=== PATIENT | female | born 1985 | race Caucasian/White ===

== ENCOUNTER 2018-03-01 11:36 | Inpatient (IN) ==
--- OUTSIDE RECORDS SUMMARY | 2018-03-03 14:55 | External Medical Summary | Continuity of Care Document ---
:1985 Author Organization [facility] Address [address] [place], [place] [address] Phone Care Team Providers Name Role Phone Corrie Coronado APRN Unavailable Unavailable Allergies, Adverse Reactions, Alerts Substance Reaction Severity Status oxycodone Rash Unknown Active hydrocodone Unknown Active Medications Medication Instructions Dosage Effective Dates Status Comments (start - stop) Aspir-81 81 mg take 1 tablet by 81 MG - Active tablet,delayed oral route every release day Elite-OB 50 take 1 tablet by Not Available - Active mg-1.25 mg tablet oral route every day Fish Oil [place] - Active 3-6-9 300 mg-1,000 mg capsule,delayed release Problems Condition Effective Dates (start - stop) Clinical Status 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) - (routine) w/o abn findings 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) - (routine) w/o abn findings Previous Low Transverse - Encounter for suprvsn of normal - , third trimester 30 weeks gestation of - Supervision of other high risk - pregnancies, first trimester Previous Low Transverse - Encntr screen for infections w sexl - mode of transmiss Encounter for screening for oth - infec/parastc diseases Encounter for suprvsn of normal - , first trimester Encounter for screening of - mother 9 weeks gestation of - Secondary amenorrhea Female infertility associated with anovulation Supervision of other high risk - pregnancies, first trimester Previous Low Transverse - 12 weeks gestation of - Supervision of other high risk - pregnancies, second trimester Previous Low Transverse - 17 weeks gestation of - Supervision of other high risk - pregnancies, third trimester Previous Low Transverse - 28 weeks gestation of - Previous Low Transverse - Encounter for suprvsn of normal - , second trimester 17 weeks gestation of - Previous Low Transverse - Dizziness and giddiness - Encounter for suprvsn of normal - , second trimester 26 weeks gestation of - Previous Low Transverse - Encounter for suprvsn of normal - , second trimester 22 weeks gestation of - Previous Low Transverse - Encounter for suprvsn of normal - , third trimester 32 weeks gestation of - Dizziness and giddiness - 25 weeks gestation of - Encounter for oth genetic testing of female for pro mgmt Encounter for oth general cnsl and advice on procreation Personal history of oth diseases of the female genital tract OCP Surveillance - Active Procedures Procedure Date 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 Provider: Health HOLLIE, C-SectionEncbora [address] r for suprvsn of [facility], 1522, normal , Center [address] [place], third [id number], HOSSEIN [place], weeks gestation 120, [place], [id number], [place], [place], [place], [id number]. tel: tel: , [place]. [id number] tel: [phone] Associates [place] Previous Low May-3 Cornelius Referring In Womens Transverse 0-201 Cedrick. 700 Provider: Albertina [facility]OWNE, [facility] 8 Medical [place] PO Box r for suprvsn of [facility], 1522, normal , Dr [place] [id number] [place], third 120, [place], [place], weeks gestation Seth, [place], [id number], of [place], [place], [place] [id number]. tel: , [place]. tel: tel:[phone] [facility] [place] Supervision of December-1 Lexus Referring In Womens other high risk 4-201 Wendy. Provider: Albertina BROWNE, pregnancies, 8 [address] third [facility], 1522, trimesterPrevious Center [address], Low Transverse [place], [id number] weeks 120, [place], [id number], gestation of [place], [place], [id number]. tel: tel: , [place]. [id number] tel: [phone] Associates [place] Previous Low Apr-3 Lexus Referring In Womens Transverse 0-201 Wendy. Provider: Albertina BROWNE, C-SectionDizzines 8 [address] s and [facility], 1522, [facility] [address] [place], r for suprvsn of [place], normal , 120, [place], [id number], second [place], [place] [id number] weeks [place], [id number]. tel: gestation of [phone] tel: , [place]. [id number] tel: [phone] [facility] [place] Dizziness and Apr-2 Lexus Referring In Womens [id number] weeks 5-201 Wendy. Provider: Albertina BROWNE, gestation of 8 [address] PO [address] Medical [place], 1522, Center [address] [place], [place], 120, [place], [id number], [place], [place], [place], [id number]. tel:[phone] tel: , [place]. [id number] tel: [phone] Matt Seth Previous Low Apr-0 Lexus Referring In Womens Transverse 2-201 Wendy. Provider: Health PA, C-SectionEncounte 8 [address] r for suprvsn of [facility], 1522, normal , Center [address], [place], weeks 120, [place], [id number], gestation of [place], [place], [place], [id number]. tel:[phone] tel: , [place]. [id number] tel: [phone] Matt Seth Previous Low Mar-0 Lexus Referring In Womens Transverse 5-201 Wendy. Provider: Albertina BROWNE, C-SectionEncounte 8 [address] r for suprvsn of [facility], 1522, normal , Center [address], [place], [id number] weeks 120, [place], [id number], [place], [id number]. tel:[phone] tel: , [place]. [id number] tel: [phone] Matt Seth Supervision of Mar-0 Lexus Referring In Womens Ultrasound other high risk 5-201 Wendy. Provider: Health PA, pregnancies, 8 [address] PO Box second [facility], 1522, trimesterPrevious Center [address] Transverse [place], C-Ralhpab15 weeks 120, [place], [id number], gestation of [place], [place], [place], [id number]. tel:[phone] tel: , [place]. [id number] tel: [phone] Matt Seth Supervision of Mauricio-2 Lexus Referring In Womens other high risk 9-201 Wendy. Provider: Albertina BROWNE, pregnancies, 8 [address] PO Box first Medical [place] M, 1522, trimesterPrevious Center [address] Low Transverse , HOSSEIN [place], [id number] weeks 120, [place], [id number], gestation of [place], [place], [id number]. tel: [phone] tel: , [place]. [id number] tel: [phone] Matt Seth Supervision of Lexus Referring In Womens other high risk 3-201 Wendy. Provider: Albertina BROWNE, pregnancies, 8 [address] first Medical [place] M, 1522, trimesterPrevious Center [address] Low Transverse , HOSSEIN [place], C-SectionEncntr 120, [place], [id number], screen for [place], [place] infections w sexl [place], [id number]. tel: mode of [phone] tel: transmissEncounte , [place]. [id number] r for screening tel: for oth [id number] infec/parastc diseasesEncounter for suprvsn of normal , first trimesterEncounte r for screening of mother9 weeks gestation of [facility] [place] Secondary Lexus Referring In Womens amenorrhea 5-201 Wendy. Provider: Albertina BROWNE, 7 [address] PO Box [facility] [place] M, 1522, Center [address], HOSSEIN [place], 120, [place], , [place], [place], [id number]. tel:[phone] tel: , [place]. [phone] tel: [phone] Matt Seth Female Lexus Referring In Womens infertility 5-201 Wendy. Provider: Albertina BROWNE, associated with [address] Box anovulation Medical [place] M, 1522, Center [address], HOSSEIN [place], 120, [place], , [place], [place], [id number]. tel:[phone] tel: , [place]. [id number] tel: [phone] [facility] [place] Encntr for estimator binding Feb-2 Lexus Referring In Womens exam (general) 2- Wendy. Provider: Albertina BROWNE, (routine) w/o abn 7 [address] PO [address] findings Gita [place] M, 1522, Center [address], [place], [place], 120, [place], [id number], [place], [place], [place], [id number]. tel:[phone] tel: , [place]. [id number] tel: [phone] [facility] [place] Encntr for estimator binding Feb-0 Lexus Referring In Womens exam (general) Wendy. Provider: Albertina BROWNE, (routine) w/o abn 6 [address] findings Gita [place] M, 1522, Center [address], [place], [place], 120, [place], [id number], [place], [place], [id number]. tel:[phone] tel: , [place]. [id number] tel: [phone] [facility] Encounter for ot Phillips Referring In Womens Ultrasound genetic testing [place]. Provider: Albertina BROWNE, of female for pro 5 [address] mgmtEncounter for Alan [place], 1522, oth general cnsl [place], [address] [place], and advice on [place], Luzmaria, HOSSEIN, procreationPerson [id number] [place], [id number], [place] history of oth , [place]. [place], [place] diseases of the tel:[phone]. tel: female genital [phone] tel: tract [phone] Associates [place] December- Lexus Referring In Womens - Wendy. Provider: Albertina BROWNE, 3 700 [address] PO Box Medical Lexus L, 1522, Center [address], [facility] 120[facility] [id number], [place] [address], [place], tel:[phone] HOSSEIN, [address] , [place]. [id number]. tel: tel: [phone] Family History Family Member Diagnosis Age At Onset Maternal Grandfather Cardiovascular Disease No family history of Hypertension No family history of Stroke No family history of Breast Cancer No family history of Ovarian Cancer No family history of Thyroid Disorder No family history of Kidney Problems No family history of Epilepsy No family history of Colon Cancer No family history of Osteoporosis Paternal Grandfather Lung Disease Maternal Grandfather Diabetes mellitus Maternal Grandmother Cardiovascular Disease Immunizations Vaccine Date Status Comments Unknown Payers Payer name Insurance type Covered libertarian ID Authorization(s) GAYLE CATALAN BL [id number] Social History Type Description Quantity Date Captured Alcohol Use Details No Caffeine Use Details Unknown Tobacco Use Status Unknown Smoking Status Never smoker Vital Signs Date / Height Weight BMI Pulse Blood Temperature Respiratory Body Head BMI Time: Rate Pressure Rate Surface Circumference percentile Area Unknown Chief Complaint And Reason For Visit Unknown Chief Complaint And Reason For Visit Reason For Referral Reason For Referral Unknown Plan Of Care Date Type Action Status Goal Lifestyle education regarding diet completed Goal Lifestyle education regarding diet completed Goal Lifestyle education regarding diet completed Appointment Becky [place] BOOKED Appointment Becky [place] BOOKED Appointment Becky [place] BOOKED Appointment Becky [place] BOOKED Appointment Becky [place] BOOKED Appointment Becky [place] BOOKED Appointment Becky [place] - RC/S BOOKED Appointment Becky [place] BOOKED Future Order: Lab Order Pap Smear With HPV Reflex If ASCUS Ordered ([id number]), Collected on: Date Type Problem Goal Intervention Status Start Date Unknown. History Of Present Illness Encounter Date Complaint History Of Present Illness This patient has no known history of present illness Functional Status Encounter Date Functional Assessment Cognitive Assessment Unknown Medications Administered Medication Instructions Dosage Effective Dates (start - stop) Status Comments Drug Treatment Unknown Instructions Date Instruction Additional Information HIV and other routine tests risk factors identified by history anticipated course of care nutrition and weight gain counseling, special diet toxoplasmosis precautions (cats / raw meat) sexual activity exercise indications for ultrasound influenza vaccine environmental / work hazards travel use of any medications (including supplements, vitamins, herbs, OTC drugs) domestic violence seat belt use childbirth classes / hospital facilities hospital registration genetic testing new ob handbook Giving encouragement to exercise Related to Body mass index 29.0-29.9 Lifestyle education regarding diet Related to Body mass index 29.0-29.9 Giving encouragement to exercise Related to Body mass index 29.0-29.9 Lifestyle education regarding diet Related to Body mass index 29.0-29.9 Giving encouragement to exercise Related to Body mass index 27.0-27.9 Lifestyle education regarding diet Related to Body mass index 27.0-27.9
--- OUTSIDE RECORDS SUMMARY | 2018-03-03 14:55 | External Medical Summary | Continuity of Care Document ---
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) w/o abn findings Dizziness and giddiness - 25 weeks gestation of - Supervision of other [...] second trimester 22 weeks gestation of - Encounter for oth genetic testing of female for pro mgmt Encounter for oth general cnsl and advice on procreation Personal history of oth diseases of the female genital tract OCP Surveillance - Active Procedures Procedure Date 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 No 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 Lymphs 13:59:00 13 % Not Estab. Monocytes 13:59:00 7 % Not Estab. Eos 13:59:00 1 % Not Estab. Basos 13:59:00 0 % Not Estab. Immature Cells 13:59:00 Neutrophils (Absolute) 13:59:00 6.7 x10E3/uL 1.4-7.0 Lymphs (Absolute) 13:59:00 1.1 x10E3/uL 0.7-3.1 Monocytes(Absolute) 13:59:00 0.6 x10E3/uL 0.1-0.9 Eos (Absolute) 13:59:00 0.0 x10E3/uL 0.0-0.4 Baso (Absolute) 13:59:00 0.0 x10E3/uL 0.0-0.2 Immature Granulocytes 13:59:00 0 % Not Estab. Immature Grans (Abs) 13:59:00 0.0 x10E3/uL 0.0-0.1 NRBC 13:59:00 Hematology Comments: 13:59:00 Panel Description: Comp. Metabolic Panel (14) Glucose 13:59:00 105 mg/dL 65-99 H BUN 13:59:00 9 mg/dL 6-20 Creatinine 13:59:00 0.59 mg/dL 0.57-1.00 eGFR If NonAfricn Am 13:59:00 123 mL/min/1.73 >59 eGFR If Africn Am 13:59:00 142 mL/min/1.73 >59 BUN/Creatinine Ratio 13:59:00 15 9-23 Sodium 13:59:00 138 mmol/L 134-144 Potassium 13:59:00 3.9 mmol/L 3.5-5.2 Chloride 13:59:00 100 mmol/L 96-106 Carbon Dioxide, Total 13:59:00 22 mmol/L 18-29 Calcium 13:59:00 8.8 mg/dL 8.7-10.2 Protein, Total 13:59:00 6.7 g/dL 6.0-8.5 Albumin 13:59:00 4.3 g/dL 3.5-5.5 Globulin, Total 13:59:00 2.4 g/dL 1.5-4.5 A/G Ratio 13:59:00 1.8 1.2-2.2 Bilirubin, Total 13:59:00 0.4 mg/dL 0.0-1.2 Alkaline Phosphatase 13:59:00 73 IU/L 39-117 AST (SGOT) 13:59:00 20 IU/L 0-40 ALT (SGPT) 13:59:00 15 IU/L 0-32 Advance Directives Directive Yes / No Effective Date File Name Unknown Encounters Encounter Practice Location Reason(s) Diagnoses Date Provider Care Team Description For Visit Members [facility] [place] Supervision of Lexus Referring In Womens other high risk 4-201 Wendy. Provider: Albertina BROWNE, pregnancies, [address] [facility], 1522, trimesterPrevious Center [address], Low Transverse [place], C-Afibben65 weeks 120, [place], [id number], gestation of HOSSEIN [place], [place] HOSSEIN, [id number]. tel:+ [phone] tel: [phone] , [place]. [id number] tel: [phone] Matt Seth Previous Low Apr-3 Lexus Referring In Womens Transverse 0-201 Wendy. Provider: Albertina BROWNE, C-SectionDizzines 8 [address] s and Medical [place] M, 1522, giddinessEncounte Center [address] for suprvsn of [place], normal , 120, [place], [id number], second [place], [place] tctriazlt52 weeks [place], [id number]. tel: gestation of [phone] tel: , US. 9303831 tel:[phone] [facility] [place] Dizziness and Apr-2 Lexus Referring In Womens weeks 5-201 Wendy. Provider: Health PA, gestation of [address] Medical [place] M, 1522, Center [address] [place], [place], 120, [place], [id number], [place], [place], [place], [id number]. tel: tel: , [place]. [id number] tel: [phone] [facility] [place] Previous Low Apr-0 Lexus Referring In Womens Transverse 2-201 Wendy. Provider: Health HOLLIE, C-SectionEncounte [address] r for suprvsn of [facility] Phillips M, 1522, normal , Center [address], [place], [place], weeks 120, [place], [id number], gestation of [place], [place], [id number]. tel: tel: , [place]. 0348291 tel: [phone] Associates [place] Previous Low Mar-0 Lexus Referring In Womens Transverse 5-201 Wendy. Provider: Health HOLLIE, C-SectionEncounte [address] r for suprvsn of [facility] Phillips M, 1522, normal , Center [address], [place], [place], [id number] weeks 120, [place], [id number], gestation of [place], [place], [id number]. tel: tel: , [place]. 1673308 tel:[phone] Matt Seth Supervision of Oct-0 Lexus Referring In Womens Ultrasound other high risk 5-201 Wendy. Provider: Health PA, pregnancies, [address] PO Box [facility] M, 1522, trimesterPrevious Center [address], Low Transverse [place], C-Otnodir38 weeks 120, [place], [id number], gestation of [place], [place], [id number]. tel:[phone] tel: , [place]. 8383310 tel: [phone] Matt Seth Supervision of Aug-2 Lexus Referring In Womens other high risk 9-201 Wendy. Provider: Health PA, pregnancies, 8 [address] PO [address] [facility] M, 1522, trimesterPrevious Center [address] Low Transverse [place], C-Bwjzryy50 weeks 120, [place], [id number], gestation of [place], [place], [id number]. tel:[phone] tel: , [place]. 8982702 tel: [phone] Matt Seth Supervision of Aug-0 Lexus Referring In Womens other high risk 3-201 Wendy. Provider: Health PA, pregnancies, [address] Box [facility] M, 1522, trimesterPrevious Center [address], Low Transverse [place], C-SectionEncntr 120, [place], [id number], screen for [place], [place] infections w sexl [place], [id number]. tel: mode of [phone] tel: transmissEncounte , [place]. [id number] r for screening tel: for oth [phone] infec/parastc diseasesEncounter for suprvsn of normal , first trimesterEncounte r for screening of mother9 weeks gestation of Associates [place] Secondary Lexus Referring In Womens amenorrhea 5-201 Wendy. Provider: Health PA, [address] Box [facility] M, 1522, Center [address], Dr, Clint [place], 120, [place], [id number], [place], [place], [id number]. tel:[phone] tel: , [place]. 7701381 tel: [phone] [facility] [place] Female Edi-0 Lexus Referring In Womens infertility 5-201 Wendy. Provider: Albertina BROWNE, associated with [address] anovulation Medical [place] M, 1522, Center [address], [place], [place], 120, [place], [id number], [place], [place], [place], [id number]. tel:[phone] tel: , [place]. 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 Provider: Albertina BROWNE, (routine) w/o abn [address] PO Box findings Medical [place] M, 1522, Center [address], [place], [place], 120, [place], [id number], [place], [place], [place], [id number]. tel:[phone] tel: , [place]. 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 Provider: Albertina BROWNE, (routine) w/o abn [address] findings Medical [place] M, 1522, Center [address], [place], [place], 120, [place], [id number], [place], [place], [id number]. tel:[phone] tel: , US. 9341259 tel: [phone] Associates [facility] Encounter for oth Phillips Referring In Womens Ultrasound genetic testing 2-201 Diego. Provider: Albertina BROWNE, of female for pro 5 [address] mgmtEncounter for [place]utt[place] M, 1522, ot general cnsl [place], [address] [place], and advice on [place], procreationPerson [id number] [place], [id number], [place] history of ot , [place]. [place], diseases of the tel: [phone]. tel: female genital [phone] tel:[phone] Associates [place]us Referring In Womens 2-201 Wendy. Provider: [facility], 700 [address] [facility] Medical [place]us L, 1522, Center [address], [facility], 120, [place] [id number], [place] [facility] 120, [place], tel: [phone] [place], , . [id number]. tel: tel: [phone] Family History Family Member Diagnosis Age At [...] Unknown Payers Payer name Insurance type Covered green party ID Authorization(s) [facility] [id number] Social History Type Description Quantity Date Captured Alcohol Use Details No Caffeine Use Details Unknown Tobacco Use Status Unknown Smoking Status Never smoker Vital Signs Date / Height Weight BMI Pulse Blood Temperature Respiratory Body Head BMI Time: Rate Pressure Rate Surface Circumference percentile Area 183.80 31.5 131/86 -2018 lbs 5 mm[Hg] 1:32 kg/m PM eter (2) Chief Complaint And Reason For Visit Unknown Chief Complaint And Reason For Visit Reason For Referral Reason For Referral Unknown Plan Of Care Date Type Action Status Goal Lifestyle education regarding diet completed Goal Lifestyle education regarding diet completed Goal Lifestyle education regarding diet completed Appointment Becky [place] BOOKED Appointment Becky [place] BOOKED Appointment Becky Houtson BOOKED Appointment Becky [place] BOOKED Appointment Becky [place] BOOKED Appointment Becky [place] BOOKED Appointment Becky [place] BOOKED Appointment Becky [place] BOOKED Future Order: [...]
--- OUTSIDE RECORDS SUMMARY | 2018-03-03 14:55 | External Medical Summary | Continuity of Care Document ---
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) - (routine) w/o abn findings Encntr for surgical nurse exam (general) - (routine) w/o abn findings Supervision of other high risk - pregnancies, third trimester Previous Low Transverse - 34 weeks gestation of - Supervision of other [...] pregnancies, third trimester Previous Low Transverse - Encounter For Screening For - Streptococcus B 36 weeks gestation of - Supervision of other [...] third trimester 30 weeks gestation of - Previous Low Transverse - 34 weeks gestation of - Previous Low Transverse [...] Procedures Procedure Date OB Visit No Charge Results Test Name Date and Time Measure Units Reference Range Abnormal Flag Comments Unknown Advance Directives Directive Yes / No Effective Date File Name Unknown Encounters Encounter Practice Location Reason(s) Diagnoses Date Provider Care Team Description For Visit Members [facility] Supervision of Edi-0 Lexus Referring In Womens other high risk 9-201 Wendy. Provider: Albertina BROWNE, pregnancies, [address] third Medical [facility], 1522, trimesterPrevious Center [address], Low Transverse [place], C-SectionEncounte 120, [address], [id number], r For [place], [place], Screening [place], [id number]. tel: Streptococcus B36 [phone] tel: weeks gestation , [place]. [id number] of tel: [phone] Matt Seth Supervision of Antonio-2 Lexus Referring In Womens other high risk 5-201 Wendy. Provider: Albertina BROWNE, pregnancies, 8 [address] third [facility], 1522, trimesterPrevious Center [address] Low Transverse [place], C-[id number] weeks 120, [address], [id number], gestation of [place], [place], [place], [id number]. tel:[phone] tel: , [place]. [id number] tel: [phone] [facility] Previous Low Antonio-2 Lexus Referring In Womens Ultrasound Transverse 5-201 Wendy. Provider: Albertina BROWNE, C-Izisooh41 weeks 8 [address] gestation of [facility], 1522, Center [address] [place], 120, [address], [id number], [place], [place], [id number]. tel:[phone] tel: , [place]. [id number] tel: [phone] [facility] Previous Low Antonio-1 Lexus Referring In Womens Transverse 1-201 Wendy. Provider: Albertina BROWNE, C-SectionEncounte [address] r for suprvsn of [facility], 1522, normal , Center [address], third [id number] [place], weeks gestation 120, [address], [id number], of [place], [place], [place], [id number]. tel: tel: , [place]. 4876502 tel: [phone] [facility] Previous Low May-3 Cornelius Referring In Womens Transverse 0-201 Cedrick. 700 Provider: Albertina BROWNE, [facility] 8 Medical [place] PO Box r for suprvsn of [facility], 1522, normal , Dr [facility] [address], third [id number] 120, HOSSEIN [place], weeks gestation [place], [address], [id number], of [place], [place], [place] [id number]. tel: , [place]. tel: tel:[phone] [facility] Supervision of December-1 Lexus Referring In Womens other high risk 4-201 Wendy. Provider: Albertina BROWNE, pregnancies, 8 [address] third Medical [facility], 1522, trimesterPrevious Center [address], Low Transverse [place], C-Wmrpojf69 weeks 120, [address], [id number], gestation of [place], [place], [id number]. tel: tel: , [place]. 4901615 tel: [phone] [facility] Previous Low Apr-3 Lexus Referring In Womens Transverse 0-201 Wendy. Provider: Albertina BROWNE, C-SectionDizzines 8 [address] s and [facility] M, 1522, [facility] [address], r for suprvsn of [place], normal , 120, [address], [id number], second [place], [place] [email or web address] weeks [place], [id number]. tel: gestation of tel: , [place]. 5917227 tel: [phone] [facility] Dizziness and Apr-2 Lexus Referring In Womens [id number] weeks 5-201 Wendy. Provider: Albertina BROWNE, gestation of [address] Medical [place] [facility], 1522, Center [address] [place], 120, [address], [id number], [place], [place], [place], [id number]. tel:[phone] tel: , [place]. 0649157 tel: [phone] [facility] Previous Low Apr-0 Lexus Referring In Womens Transverse 2-201 Wendy. Provider: Health PA, C-SectionEncounte 8 [address] r for suprvsn of [facility], 1522, normal , Center [address], [place], weeks 120, [address], [id number], gestation of [place], [place], [place], [id number]. tel:[phone] tel: , [place]. 8105939 tel: [phone] [facility] Previous Low Mar-0 Lexus Referring In Womens Transverse 5-201 Wendy. Provider: Albertina BROWNE, C-SectionEncounte 8 [address] r for suprvsn of [facility], 1522, normal , Center [address], [place], [id number] weeks 120, [address], [id number], gestation of [place], [place], [place], [id number]. tel:[phone] tel: , [place]. 0362296 tel: [phone] Matt [place] Supervision of Mar-0 Lexus Referring In Womens Ultrasound other high risk 5-201 Wendy. Provider: Health PA, pregnancies, 8 [address] second Medical [facility], 1522, trimesterPrevious Center [address] Transverse [place], C-[id number] weeks 120, [address], [id number], gestation of [place], [place], [place], [id number]. tel:[phone] tel: , [place]. 0179316 tel: [phone] Matt [place] Supervision of Lexus Referring In Womens other high risk 9-201 Wendy. Provider: Albertina BROWNE, pregnancies, 8 [address] first Medical [facility], 1522, trimesterPrevious Center [address], Low Transverse [place], C-[id number] weeks 120, [address], [id number], gestation of [place], [place], [place], [id number]. tel: [phone] tel: , [place]. 4848027 tel: [phone] Matt Seth Supervision of Aug- Lexus Referring In Womens other high risk 3-201 Wendy. Provider: Albertina BROWNE, pregnancies, 8 [address] first Medical [facility], 1522, trimesterPrevious Center [address], Low Transverse [place], C-SectionEncntr 120, [address], [id number], screen for [place], [place], [place] infections w sexl [place], [id number]. tel: mode of [phone] tel: transmissEncounte , [place]. [id number] r for screening tel: for oth [id number] infec/parastc diseasesEncounter for suprvsn of normal , first trimesterEncounte r for screening of mother9 weeks gestation of [facility] Secondary Lexus Referring In Womens amenorrhea 5-201 Wendy. Provider: Albertina BROWNE, 7 [address] PO Box [facility], 1522, Center [address] [place], [place], 120, [address], [id number], [place], [place], [place], [id number]. tel: [phone] tel: , [place]. 2685868 tel: [phone] Matt Seth Female Feb- Lexus Referring In Womens infertility 5-201 Wendy. Provider: Albertina BROWNE, associated with [address] anovulation [facility], 1522, Center [address], [place], [place], 120, [address], [id number], [place], [place], [id number]. tel:[phone] tel: , [place]. 1664918 tel: [phone] [facility] Encntr for surgical nurse Sep-2 Lexus Referring In Womens exam (general) 2- Wendy. Provider: Albertina BROWNE, (routine) w/o abn 7 [address] findings [facility] M, 1522, Center [address], [place], [place], 120, [address], [id number], [place], [place], [place], [id number]. tel:[phone] tel: , [place]. 8325454 tel: [phone] [facility] Encntr for surgical nurse Feb-0 Lexus Referring In Womens exam (general) Wendy. Provider: Albertina BROWNE, (routine) w/o abn 6 [address] findings G[facility] M, 1522, Center [address], [place], [place], 120, [address], [id number], [place], [place], [place], [id number]. tel:[phone] tel: , [place]. 3312005 tel: [phone] [facility] Encounter for ot Phillips Referring In Womens Ultrasound genetic testing Diego. Provider: Albertina BROWNE, of female for pro 5 [address] mgmtEncounter for Alan [place] M, 1522, oth general cnsl [address], [address], and advice on [place], [place], HOSSEIN, procreationPerson [id number] [address], , al history of oth , [place]. [place], [place] diseases of the tel:3003. tel: female genital [phone] tel: tract [phone] [facility] December- Lexus Referring In Womens - Wendy. Provider: Albertina BROWNE, 3 [address] Medical Lexus L, 1522, [place] [address], [facility], 120, [place] [id number], [facility], [place]olo [place], tel:[phone] HOSSEIN, [address]38[address] , [place]. [id number]. tel: tel: [phone] Family History Family Member Diagnosis Age At [...] Cardiovascular Disease Immunizations Vaccine Date Status Comments Tdap completed Source: New Immunization Record Payers Payer name Insurance type Covered green party ID Authorization(s) [facility] [id number] [facility] [id number] Social History Type Description Quantity Date Captured Alcohol Use Details No Caffeine Use Details Unknown Tobacco Use Status Unknown Smoking Status Never smoker Vital Signs Date / Height Weight BMI Pulse Blood Temperature Respiratory Body Head BMI Time: Rate Pressure Rate Surface Circumference percentile Area 190.70 32.7 138/82 2018 lbs 3 mm[Hg] 1:45 kg/m PM eter (2) Chief Complaint And Reason For Visit Unknown Chief Complaint And Reason For Visit Reason For Referral Reason For Referral Unknown Plan Of Care Date Type Action Status Goal Lifestyle education regarding completed diet Goal Lifestyle education regarding completed diet Goal Lifestyle education regarding completed diet Appointment Becky [place] BOOKED Appointment Becky [place] BOOKED Appointment Becky Houston [facility] - [facility]/S BOOKED Appointment Becky [place] BOOKED Future Order: Lab Order Pap Smear With HPV Reflex If Ordered ASCUS ([id number]), Collected on: Future Order: Radiology Order Ultrasound OB Follow-up ([id number]) Ordered Date Type Problem Goal Intervention Status Start [...]
--- OUTSIDE RECORDS SUMMARY | 2018-03-03 14:55 | External Medical Summary | Continuity of Care Document ---
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 tel: Streptococcus B36 [phone] tel: weeks gestation , [place]. 1341768 of tel: [phone] [facility] Supervision of Antonio-2 Lexus Referring In Womens other high risk 5-201 Wendy. Provider: Albertina BROWNE, pregnancies, 8 [address] third [facility], 1522, trimesterPrevious Center [address] Transverse [place], C-Qzchflw45 weeks 120, [place], [id number], gestation of [place], [place], [place], [id number]. tel:[phone] tel: , [place]. 1897875 tel: [phone] [facility] Previous Low Antonio-2 Lexus Referring In Womens Ultrasound Transverse 5-201 Wendy. Provider: Albertina BROWNE, C-Xkvnrxw36 weeks 8 [address] gestation of [facility], 1522, Center [address] [place], [place], 120, [place], [id number], [place], [place], [place], [id number]. tel:[phone] tel: , US. 6275869 tel: [phone] [facility] Previous Low Antonio-1 Lexus Referring In Womens Transverse 1-201 Wendy. Provider: Albertina BROWNE, C-SectionEncounte 8 [address] r for suprvsn of [facility], 1522, normal , Center [address] [place], third [id number] [place], weeks gestation 120, [place], [id number], of [place], [place], [place], [id number]. tel: tel: , [place]. 6932023 tel: [phone] [facility] Previous Low May-3 Cornelius Referring In Womens Transverse 0-201 Cedrick. 700 Provider: Health PA, C-SectionEncounte 8 Medical [address] PO Box r for suprvsn of [facility], 1522, normal , [place] [address] [place], third 120, HOSSEIN Dutta, weeks gestation [place], [place], [id number], of [place], [place], [place] [id number]. tel: , [place]. tel: tel:[phone] [facility] Supervision of December-1 Lexus Referring In Womens other high risk 4-201 Wendy. Provider: Health PA, pregnancies, 8 [address] third Medical [facility], 1522, trimesterPrevious Center [address] [place], Low Transverse [place], C-[id number] weeks 120, [place], [id number], gestation of [place], [place], [place], [id number]. tel: tel: , [place]. 8790911 tel: [phone] [facility] Previous Low Apr-3 Lexus Referring In Womens Transverse 0-201 Wendy. Provider: Health HOLLIE, C-SectionDizzines 8 [address] s and Medical [facility], 1522, [facility] [address] [place], r for suprvsn of [place], normal , 120, [place], [id number], second [place], [place] [id number] weeks [place], [id number]. tel: gestation of [phone] tel: , [place]. 0905946 tel: [phone] [facility] Dizziness and Apr-2 Lexus Referring In Womens [id number] weeks 5-201 Wendy. Provider: Health PA, gestation of [address] Medical [facility], 1522, Center [address] [place], [place], 120, [place], [id number], [place], [place], [place], [id number]. tel:[phone] tel: , [place]. 1195223 tel: [phone] [facility] Previous Low Apr-0 Lexus Referring In Womens Transverse 2-201 Wendy. Provider: Health HOLLIE, C-SectionEncounte 8 [address] r for suprvsn of [facility], 1522, normal , Center [address], [place], [id number] weeks 120, [place], [id number], gestation of [place], [place], [place], [id number]. tel: tel: , [place]. 3584916 tel: [phone] [facility] Previous Low Mar-0 Lexus Referring In Womens Transverse 5-201 Wendy. Provider: Albertina BROWNE, C-SectionEncounte 8 [address] r for suprvsn of [facility], 1522, normal , Center [address], [place], [id number] weeks 120, [place], [id number], gestation of [place], [place], [place], [id number]. tel:[phone] tel: , [place]. 3694349 tel: [phone] Matt [place] Supervision of Mar-0 Lexus Referring In Womens Ultrasound other high risk 5-201 Wendy. Provider: Albertina BROWNE, pregnancies, 8 [address] second [facility], 1522, trimesterPrevious Center [address] Transverse [place], C-Luqkvce35 weeks 120, [place], [id number], gestation of [place], [place], [place], [id number]. tel:[phone] tel: , [place]. 9196032 tel: [phone] [facility] Supervision of Aug-2 Lexus Referring In Womens other high risk 9-201 Wendy. Provider: Albertina BROWNE, pregnancies, 8 [address] first [facility] M, 1522, trimesterPrevious Center [address] [place], Low Transverse [place], C-[id number] weeks 120, [place], [id number], gestation of [place], [place], [id number]. tel:[phone] tel: , US. 6080604 tel: [phone] [facility] Supervision of Aug-0 Lexus Referring In Womens other high risk 3-201 Wendy. Provider: Albertina BROWNE, pregnancies, 8 [address] first [facility] M, 1522, trimesterPrevious Center [address] [place], Low Transverse [place], C-SectionEncntr 120, [place], [id number], screen for [place], [place], [place] infections w sexl [place], [id number]. tel: mode of [phone] tel: transmissEncounte , [place]. 5911956 r for screening tel: for oth [id number] infec/parastc diseasesEncounter for suprvsn of normal , first trimesterEncounte r for screening of mother9 weeks gestation of [facility] Secondary Lexus Referring In Womens amenorrhea 5-201 Wendy. Provider: Albertina BROWNE, [address] [facility] M, 1522, Center [address], HOSSEIN [place], 120, [place], [id number], [place], [place], [place], [id number]. tel:[phone] tel: , [place]. 4081526 tel: [phone] Matt [place] Female Feb-0 Lexus Referring In Womens infertility 5-201 Wendy. Provider: Albertina BROWNE, associated with [address] anovulation [facility], 1522, Center [address], HOSSEIN [place], 120, [place], [id number], [place], [place], [id number]. tel:[phone] tel: , [place]. 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 Provider: Albertina BROWNE, (routine) w/o abn 7 [address] findings Medical Alan Loya, 1522, Center [address], [place], [place], 120, [place], [id number], [place], [place], [place], [id number]. tel:[phone] tel: , US. 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 Provider: Albertina BROWNE, (routine) w/o abn 6 [address] Box findings Medical Alan M, 1522, Center [address], [place], [place], 120, [place], [id number], [place], [place], [place], [id number]. tel:[phone] tel: , US. 6485342 tel: [phone] [facility] Encounter for ot Phillips Referring In Womens Ultrasound genetic testing Diego. Provider: Albertina BROWNE, of female for pro 5 [address] mgmtEncounter for Alan [place]utta, 1522, oth general cnsl [place], [address] [place], and advice on [place], [place], HOSSEIN, procreationPerson [id number] [place], , al history of oth , [place]. [place], [place] diseases of the tel:[phone]. tel: female genital [phone] tel: tract [phone] [facility] [place]us Referring In Womens - Wendy. Provider: Albertina BROWNE, 3 [address] Box Medical [place] L, 1522, Center [address], [facility], [facility] [id number], [facility] 120, HOSSEINRolo, tel: [phone] HOSSEIN 935894 , [place]. [id number]. tel: tel: [phone] Family History Family Member Diagnosis Age At [...] Record Payers Payer name Insurance type Covered libertarian ID Authorization(s) [facility] [id number] [facility] [id number] Social History Type Description Quantity Date Captured Unknown Vital Signs Date / Height Weight BMI [...] Appointment Becky [place] BOOKED Appointment Becky Houston [facility] BOOKED Appointment Becky [place] BOOKED Future Order: Radiology Order Ultrasound OB Follow-up ([id number]) Ordered Future Order: Lab Order Pap Smear With HPV Reflex If Ordered ASCUS ([id number]), Collected on: Date Type Problem Goal [...]
--- OUTSIDE RECORDS SUMMARY | 2018-03-03 14:56 | External Medical Summary | Continuity of Care Document ---
:1985 Author Organization [facility] [employer] [facility] [facility] Address [address] [place], [place] [phone] Phone Care Team Providers Name Role Phone Corrie Coronado APRN Unavailable Unavailable Allergies, Adverse Reactions, Alerts Substance Reaction Severity Status No Known Drug Allergies Unknown Active Medications Medication Instructions Dosage Effective Dates Status Comments (start - stop) clomiphene citrate take 1 tablet by 50 MG - Active 50 mg tablet ORAL route every day days 3-7 of cycle Clindamycin APPLY TO AFFECTED Not Available - Active Phosphate 1% AREA 2 TIMES DAILY External Solution DIRECTED Elite-OB 50 mg-1.25 take 1 tablet by Not Available - Active mg tablet oral route every day Fish Oil [place] - Active 3-6-9 300 mg-1,000 mg capsule,delayed release Problems Condition Effective Dates (start - stop) Clinical Status 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) - (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) w/o abn findings 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) - (routine) w/o abn findings Female infertility associated with anovulation Encounter for oth genetic testing of female for pro mgmt Encounter for oth general cnsl and advice on procreation Personal history of oth diseases of the female genital tract OCP Surveillance - Active Procedures Procedure Date Unknown Results Test Name Date and Time Measure Units Reference Range Abnormal Flag Comments Unknown Advance Directives Directive Yes / No Effective Date File Name Unknown Encounters Encounter Practice Location Reason(s) Diagnoses Date Provider Care Team Description For Visit Members [facility] [place]us Referring In Women infertility 5-201 Wendy. Provider: Albertina BROWNE, associated with [address] Box anovulation Medical Alan M, 1522, Center [address], [place], [place], 120, [place], [id number], [place], [place], [id number]. tel:[phone] tel: , [place]. [id number] tel: [phone] [facility] [place] Edi-0 [place] In Womens 3-201 Wendy. Albertina BROWNE, 7 700 PO Box Medical [address], [address], [facility], 120, [id number], [place], [place], tel:[phone] , [place]. 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 Provider: Albertina BROWNE, (routine) w/o abn 7 [address] PO Box findings Medical Alan Loya, 1522, Center [address], [place], [place], 120, [place], [id number], [place], [place], [place], [id number]. tel:[phone] tel: , [place]. 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 Provider: Albertina BROWNE, (routine) w/o abn 6 700 [address] PO Box findings Medical Alan M, 1522, Center [address], [place], [place], 120, [place], [id number], [place], [place], [place], [id number]. tel: [phone] tel: , [place]. [id number] tel: [phone] Associates [facility] Encounter for ot Alan Referring In Womens Ultrasound genetic testing 2- Diego. Provider: Albertina BROWNE, of female for pro [address] mgmtEncounter for Alan Dutta Vincenzo, 1522, ot general cnsl [place], [address], and advice on [place], HOSSEIN [place], procreationPerson [id number] [place], [id number], al history of oth , [place]. [place], diseases of the tel: [phone]. tel: female genital [phone] tel: tract [phone] [facility] [place] December-2 Lexus Referring In Womens 2-201 Wendy. Provider: Health HOLLIE, 3 700 Wendy PO Box Medical [facility] L, 1522, [place] [address], [facility] [place], 120, [place] [id number], [place] [address], [place], tel: [phone] HOSSEIN, , . [id number]. tel: tel: [phone] [facility] [place] December-0 [place] In Womens 9-201 Analia. Health [place], 3 700 [facility] Medical [address], [address], [facility], 120, [id number], [place], [place], tel: [phone] , . tel: [phone] Family History Family Member Diagnosis Age At [...] Insurance type Covered green party ID Authorization(s) [facility] [id number] Social History Type Description Quantity Date Captured [...] completed Goal Lifestyle education regarding diet completed Date Type Problem Goal Intervention Status Start Date Unknown. History Of Present Illness Encounter Date Complaint History Of Present Illness This patient has no known history of present illness Functional Status Encounter Date Functional Assessment Cognitive Assessment Unknown Medications Administered Medication Instructions Dosage Effective Dates (start - stop) Status Comments Drug Treatment Unknown Instructions Date Instruction Additional Information Giving encouragement to exercise Related to Body mass index 29.0- 29.9 Lifestyle education regarding diet Related to Body mass index 29.0-29.9 Giving encouragement to exercise Related to Body mass index 27.0- 27.9 Lifestyle education regarding diet Related to Body mass index 27.0-27.9
--- OUTSIDE RECORDS SUMMARY | 2018-03-03 14:56 | External Medical Summary | Continuity of Care Document ---
:1987 Author Organization [facility] Address [address] [place], [place] [phone] Phone Care Team Providers Name Role Phone Corrie Coronado APRN Unavailable Unavailable Allergies, Adverse Reactions, Alerts Substance Reaction Severity Status oxycodone Rash Unknown Active Medications Medication Instructions Dosage Effective Dates Status Comments (start - stop) Aspir-81 81 mg take 1 tablet by 81 MG - Active tablet,delayed oral route every release day Clindamycin APPLY TO AFFECTED Not Available - Active Phosphate 1% AREA 2 TIMES DAILY External Solution DIRECTED Elite-OB 50 mg-1.25 take 1 tablet by Not Available - Active mg tablet oral route every day Fish Oil [place] - Active 3-6-9 300 mg-1,000 mg capsule,delayed release Problems Condition Effective Dates (start - stop) Clinical Status Encntr for primary counselor exam (general) - (routine) w/o abn findings Encntr for primary counselor exam (general) - (routine) w/o abn findings Secondary amenorrhea Supervision of other high risk - pregnancies, first trimester Previous Low Transverse - Encntr screen for infections w sexl - mode of transmiss Encounter for screening for oth - infec/parastc diseases Encounter for suprvsn of normal - , first trimester Encounter for screening of - mother 9 weeks gestation of - Female infertility associated with anovulation Encounter for oth genetic testing of female for pro mgmt Encounter for oth general cnsl and advice on procreation Personal history of oth diseases of the female genital tract OCP Surveillance - Active Procedures Procedure Date No Charge Office Visit Results Test Name Date and Time Measure Units Reference Range Abnormal Flag Comments Unknown Advance Directives Directive Yes / No Effective Date File Name Unknown Encounters Encounter Practice Location Reason(s) Diagnoses Date Provider Care Team Description For Visit Members [facility] Supervision of Lexus Referring In Womens other high risk -201 Wendy. Provider: Albertina BROWNE, pregnancies, 8 [address] PO Box first Medical Phillips M, 1522, trimesterPrevious Center [address], [place], C-SectionEncntr 120, [place], , [place], infections w sexl [place], [id number]. tel: mode of [phone] tel: transmissEncounte , [place]. [id number] r for screening tel: for oth [phone] infec/parastc diseasesEncounter for suprvsn of normal , first trimesterEncounte r for screening of mother9 weeks gestation of [facility] [place] early Secondary Lexus Referring In Womens amenorrhea - Wendy. Provider: Albertina BROWNE, (chief 7 [address] PO Box complaint) Gita Phillips , 1522, Center [address], [place], 120, [place], , [place], [facility], [id number]. tel:[phone] tel: , [place]. [id number] tel: [phone] [facility] [place] Female Lexus Referring In Womens infertility -201 Wendy. Provider: Albertina BROWNE, associated with [address] PO Box anovulation Gita Phillips , 1522, Center [address], HOSSEIN [place], 120, [place], [id number], [place], [place], [id number]. tel: [phone] tel: , [place]. 7549914 tel: [phone] [facility] [place] Feb-0 [place] In Womens 3- Wendy. Health HOLLIE, 7 700 PO Box Medical [address], [address], [facility] [place], 120, [id number], [place], [place], tel:[phone] , [place]. tel: [phone] [facility] [place] Encntr for primary counselor b-2 Lexus Referring In Womens exam (general) 2- Wendy. Provider: Albertina BROWNE, (routine) w/o abn 7 [address] PO Box findings Medical Phillips M, 1522, Center [address], HOS[place]IN [place], 120, [place], [id number], [place], [place], [place], [id number]. tel:[phone] tel: , [place]. 6689388 tel: [phone] [facility] [place] Encntr for primary counselor Feb-0 Lexus Referring In Womens exam (general) - Wendy. Provider: Albertina BROWNE, (routine) w/o abn 6 700 [address] PO Box findings Medical Phillips M, 1522, Center [address], HOS[place], 120, [place], [id number], [place], [place], [place], [id number]. tel:[phone] tel: , [place]. 1415444 tel: [phone] Associates [facility] Encounter for oth Alan Referring In Womens Ultrasound genetic testing Diego. Provider: Health HOLLIE, of female for pro 5 [address] PO Box mgmtEncounter for [place], Phillips M, 1522, oth general cnsl [place], [address] [place], and advice on HOSSEIN, HOSSEIN Dutta, procreationPerson [id number] [place], [id number], [place] history of oth , [place]. [place], [place] diseases of the tel:[phone]. tel: female genital [phone] tel: tract [phone] Matt [place] Lexus Referring In Womens 2-201 Wendy. Provider: Health [place], 3 700 Wendy Box Medical Lexus L, 1522, Center [address], [facility], 120, [place] [id number], [place] [facility] 120, [place], tel:[phone] [place], [id number] , [place]. [id number]. tel: tel: [phone] Family History Family Member Diagnosis Age At [...] Unknown Payers Payer name Insurance type Covered democrat ID Authorization(s) [facility] [id number] Social History Type Description Quantity Date Captured Alcohol Use Details Unknown Caffeine Use Details Unknown Tobacco Use Status Unknown Smoking Status Never smoker Vital Signs Date / Height Weight BMI Pulse Blood Temperature Respiratory Body Head BMI Time: Rate Pressure Rate Surface Circumference percentile Area 180.60 83 133/83 -2017 lbs /min mm[Hg] 1:44 PM Chief Complaint And Reason For Visit Unknown [...] Encounter Date Complaint History Of Present Illness early Spontaneous -never started Clomid. Feels tired, no bleeding or pain. Functional Status Encounter Date Functional Assessment Cognitive [...]
--- OUTSIDE RECORDS SUMMARY | 2018-03-03 14:56 | External Medical Summary | Continuity of Care Document ---
:1987 Author Organization [facility] [facility] Address [address] [place], [place] [phone] Phone Care Team Providers Name Role Phone Corrie Coronado APRN Unavailable Unavailable Allergies, Adverse Reactions, Alerts Substance Reaction Severity Status No Known Drug Allergies Unknown Active Medications Medication Instructions Dosage Effective Dates Status Comments (start - stop) Clindamycin APPLY TO AFFECTED Not Available - Active Phosphate 1% AREA 2 TIMES DAILY External Solution DIRECTED Elite-OB 50 take 1 tablet by Not Available - Active mg-1.25 mg tablet oral route every day Fish Oil [place] - Active 3-6-9 300 mg-1,000 mg capsule,delayed release clomiphene take 1 tablet by 50 MG - No Longer citrate 50 mg ORAL route every Active tablet day days 3-7 of cycle Problems Condition Effective Dates (start - stop) Clinical Status Encntr 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 Provider: Albertina BROWNE, (chief [address] PO Box complaint) Medical Phillips M, 1522, Center [address], [place], [place], 120, [place], [id number], [place], [place], [place], [id number]. tel:[phone] tel: , [place]. [id number] tel: [phone] [facility] [place] Female Edi-0 Lexus Referring In Womens infertility 5-201 Wendy. Provider: Albertina BROWNE, associated with [address] Box anovulation Medical Phillips M, 1522, Center [address], [place], [place], 120, [place], [id number], [place], [place], [place], [id number]. tel:[phone] tel: , [place]. 3648157 tel: [phone] Matt [place] Edi-0 Lexus In Womens 3-201 Wendy. Albertina BROWNE, 7 700 PO Box Medical [address], [address], [facility], 120, [id number], [place], [place], tel:[phone] , [place]. tel: [phone] Matt [place] Encntr for electroplater Feb-2 Lexus Referring In Womens exam (general) 2-201 Wendy. Provider: Albertina BROWNE, (routine) w/o abn 7 [address] PO Box findings Medical Phillips M, 1522, Center [address], [place], [place], 120, [place], [id number], [place], [place], [place], [id number]. tel:[phone] tel: , [place]. 6572195 tel: [phone] Matt [place] Encntr for electroplater Feb-0 Lexus Referring In Womens exam (general) 4-201 Wendy. Provider: Albertina BROWNE, (routine) w/o abn 6 [address] PO Box findings Medical Phillips M, 1522, Center [address], [place], 120, [place], [id number], [place], [place], [place], [id number]. tel: [phone] tel: , . [id number] tel: [phone] Associates [facility] Encounter for oth Phillips Referring In Womens Ultrasound genetic testing 2- Diego. Provider: Albertina BROWNE, of female for pro 5 [address] Box mgmtEncounter for [place] M, 1522, oth general cnsl [place], [address], and advice on [place], HOSSEIN D[place], procreationPerson [id number] [place], , al history of ot , . [place], diseases of the tel: [phone]. tel: female genital [phone] tel: tract [phone] [facility] [place] December- Lexus Referring In Womens 2-201 Wendy. Provider: Albertina BROWNE, 3 700 Wendy PO Box Medical [facility], 1522, Center [address], [facility], 120, [place] , [place] [address], [place], tel: [phone] [place], , . [id number]. tel: tel: [phone] [facility] [place] December-0 [place] In Womens 9-201 Analia. Albertina BROWNE, 3 700 PO Box [facility] [address], [address], [facility], 120, [id number], [place], HOSSEIN, tel: [phone] , . tel: [phone] Family History Family Member Diagnosis Age At [...] Unknown Payers Payer name Insurance type Covered constitution party ID Authorization(s) [employer] [place] BL [id number] Social History Type Description Quantity Date Captured Alcohol Use Details Unknown Caffeine Use Details Unknown Tobacco Use Status Unknown Smoking Status Never smoker Vital Signs Date / Height Weight BMI Pulse Blood Temperature Respiratory Body Head BMI Time: Rate Pressure Rate Surface Circumference percentile Area 180.60 83 133/83 -2017 lbs /min mm[Hg] 1:44 PM Chief Complaint And Reason For Visit Most recent encounter only, dated '07/24/2017 13:40'. early ( chief complaint). Description: Spontaneous -never started Clomid. Feels tired, no bleeding or pain. Reason For Referral Reason For Referral Unknown Plan Of Care Date Type Action Status Goal Lifestyle education regarding diet completed Goal Lifestyle education regarding diet completed Goal Lifestyle education regarding diet completed Appointment Becky Houston BOOKED Appointment Becky Houston BOOKED Date Type Problem Goal Intervention Status Start [...]
--- OUTSIDE RECORDS SUMMARY | 2018-03-03 14:56 | External Medical Summary | Continuity of Care Document ---
:1987 Author Organization [facility] Address [address] [phone] Phone Care Team Providers Name Role Phone [...] tablet oral route every day Fish Oil [place] - Active 3-6-9 300 mg-1,000 mg capsule,delayed release Problems Condition Effective Dates (start - stop) Clinical Status Encntr for obstetrician and gynaecologist exam (general) - (routine) w/o abn findings Encntr for obstetrician and gynaecologist exam (general) - (routine) w/o abn findings Previous Low Transverse - Encounter for suprvsn of normal - , second trimester 17 weeks gestation of - Supervision of [...] Transverse - 17 weeks gestation of - Encounter for oth [...] Provider Care Team Description For Visit Members Matt [place] Previous Low Oct-0 Lexus Referring In Womens Transverse 5-201 Wendy. Provider: Albertina BROWNE C-SectionEncounte 8 700 [address] PO Box r for suprvsn of [facility] M, 1522, normal , Center [address], [place], [place], [id number] weeks 120, [place], [id number], gestation of [place], [place], [id number]. tel:[phone] tel: , [place]. 8096131 tel: [phone] Matt [place] Supervision of Oct-0 Lexus Referring In Womens Ultrasound other high risk 5-201 Wendy. Provider: Albertina BROWNE, pregnancies, 8 700 [address] PO Box second [facility] , 1522, trimesterPrevious Center [address] Transverse [place], [id number] weeks 120, [place], [id number], gestation of [place], [place], [id number]. tel: [phone] tel: , [place]. 3209692 tel: [phone] Matt [place] Supervision of Lexus Referring In Womens other high risk 9-201 Wendy. Provider: Albertina BROWNE, pregnancies, 8 700 [address] PO Box first Medical [place] M, 1522, trimesterPrevious Center [address] Low Transverse [place], [id number] weeks 120, [place], [id number], gestation [place], [place], [place], [id number]. tel: [phone] tel: , [place]. [id number] tel: [phone] [facility] [place] Supervision of Lexus Referring In Womens other high risk 3-201 Wendy. Provider: Albertina BROWNE, pregnancies, [address] [facility] M, 1522, trimesterPrevious Center [address] Low Transverse [place], C-SectionEncntr 120, [place], [id number], screen for [place], [place], [place] infections w sexl [place], [id number]. tel: mode of [phone] tel: transmissEncounte , [place]. [phone] r for screening tel: for oth [phone] infec/parastc diseasesEncounter for suprvsn of normal , first trimesterEncounte r for screening of mother9 weeks gestation of [facility] [place] Secondary Lexus Referring In Womens amenorrhea -201 Wendy. Provider: Albertina BROWNE, [address] [facility] M, 1522, Center [address], [place], [place], 120, [place], [id number], [place], [place], [id number]. tel: [phone] tel: , [place]. [id number] tel: [phone] Associates [place] Female Lexus Referring In Womens infertility 5-201 Wendy. Provider: Albertina BROWNE, associated with [address] [facility] M, 1522, Center [address] [place], [place], 120, [place], [id number], [place], [place], [id number]. tel:[phone] tel: , [place]. 9472278 tel: [phone] Associates [place] Feb-0 [place] In Womens 3- Wendy. Health HOLLIE, 7 700 PO Box Medical [address], [address], [facility] [place], 120, [id number], [place], [place], tel: , [place]. tel: [phone] [facility] [place] Encntr for obstetrician and gynaecologist Feb-2 Lexus Referring In Womens exam (general) 2- Wendy. Provider: Health HOLLIE, (routine) w/o abn 7 [address] PO Box findings Medical Alan , 1522, Center [address], HOSSEIN [place], 120, [place], [id number], [place], [place], [place], [id number]. tel:[phone] tel: , [place]. [id number] tel: [phone] [facility] [place] Encntr for obstetrician and gynaecologist Feb-0 Lexus Referring In Womens exam (general) 4- Wendy. Provider: Health HOLLIE, (routine) w/o abn 6 700 [address] PO Box findings Medical Alan , 1522, Center [address], [place], [place], 120, [place], [id number], [place], [place], [place], [id number]. tel:[phone] tel: , [place]. 7755564 tel: [phone] [facility] Encounter for oth Phillips Referring In Womens Ultrasound genetic testing Diego. Provider: Health HOLLIE, of female for pro 5 [address] Box mgmtEncounter for Alan [place], 1522, oth general cnsl [place], [address] [place], and advice on [place], HOSSEIN D[place], procreationPerson [id number] [place], , al history of oth , [place]. [place], [place] diseases of the tel:3003. tel: female genital [phone] tel: tract [phone] Associates [place] Referring In Womens 2-201 Wendy. Provider: Albertina BROWNE, 3 700 Wendy PO Box Medical Lexus L, 1522, Center [address], [facility] Medical [place], 120, Center [id number], [place], [facility] 120, HOSSEIN, [place], tel: [phone] [place], [address] , . [id number]. tel: tel: [phone] Family History Family Member Diagnosis Age At [...] Unknown Payers Payer name Insurance type Covered republican ID Authorization(s) [facility] [id number] Social History Type Description Quantity Date Captured [...]
--- OUTSIDE RECORDS SUMMARY | 2018-03-03 14:56 | External Medical Summary | Continuity of Care Document ---
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 exam (general) - (routine) w/o abn findings Previous Low Transverse - Dizziness and giddiness - Encounter for suprvsn of normal - , second trimester 26 weeks gestation of - Supervision of other [...] second trimester 22 weeks gestation of - Dizziness and giddiness - 25 weeks gestation of - Encounter for oth genetic testing of female for pro mgmt Encounter for oth general cnsl and advice on procreation Personal history of oth diseases of the female genital tract OCP Surveillance - Active Procedures Procedure Date OB Visit No Charge Automated hemogram (CBC) Glucose test Venpnctr fngr/heel/ear stick routne Results Test Name Date and Time Measure Units Reference Range Abnormal Flag Comments Panel Description: CBC With Differential/Platelet WBC 16:12:00 11.2 x10E3/uL 3.4-10.8 H RBC 16:12:00 3.93 x10E6/uL 3.77-5.28 Hemoglobin 16:12:00 12.5 g/dL 11.1-15.9 Hematocrit 16:12:00 36.4 % 34.0-46.6 MCV 16:12:00 93 fL 79-97 MCH 16:12:00 31.8 pg 26.6-33.0 MCHC 16:12:00 34.3 g/dL 31.5-35.7 RDW 16:12:00 13.4 % 12.3-15.4 Platelets 16:12:00 264 x10E3/uL 150-379 Neutrophils 16:12:00 72 % Not Estab. Lymphs 16:12:00 22 % Not Estab. Monocytes 16:12:00 6 % Not Estab. Eos 16:12:00 0 % Not Estab. Basos 16:12:00 0 % Not Estab. Immature Cells 16:12:00 Neutrophils (Absolute) 16:12:00 8.1 x10E3/uL 1.4-7.0 H Lymphs (Absolute) 16:12:00 2.4 x10E3/uL 0.7-3.1 Monocytes(Absolute) 16:12:00 0.6 x10E3/uL 0.1-0.9 Eos (Absolute) 16:12:00 0.0 x10E3/uL 0.0-0.4 Baso (Absolute) 16:12:00 0.0 x10E3/uL 0.0-0.2 Immature Granulocytes 16:12:00 0 % Not Estab. Immature Grans (Abs) 16:12:00 0.0 x10E3/uL 0.0-0.1 NRBC 16:12:00 Hematology Comments: 16:12:00 Panel Description: Glucose [Mass/volume] in Serum or Plasma --1 hour post 50 g glucose PO Gestational Diabetes Screen 16:12:00 121 mg/dL 65-135 Advance Directives Directive Yes / No Effective Date File Name Unknown Encounters Encounter Practice Location Reason(s) Diagnoses Date Provider Care Team Description For Visit Members Matt Seth Supervision of Lexus Referring In Womens other high risk 4-201 Wendy. Provider: Health PA, pregnancies, [address] [facility] M, 1522, trimesterPrevious Center [address], HOSSEIN [place], C-[id number] weeks 120, [place], [id number], gestation of [place], [place], [id number]. tel:[phone] tel: , [place]. [id number] tel: [phone] [facility] [place] Previous Low Apr-3 Lexus Referring In Womens Transverse 0-201 Wendy. Provider: Albertina BROWNE, C-SectionDizzines [address] s and Medical Phillips M, 1522, giddinessEncounte Center [address] for suprvsn of [place], normal , 120, [place], [id number], second [place], [place] [id number] weeks [place], [id number]. tel: gestation of tel: , [place]. 9546860 tel: [phone] [facility] [place] Dizziness and Apr-2 Lexus Referring In Womens [email or web address] weeks 5-201 Wendy. Provider: Albertina BROWNE, gestation of [address] Medical Alan M, 1522, Center [address] [place], HOSSEIN, 120, [place], [id number], [place], [place], [id number]. tel:[phone] tel: , [place]. [id number] tel: [phone] [facility] [place] Previous Low Apr-0 Lexus Referring In Womens Transverse 2-201 Wendy. Provider: Albertina BROWNE C-SectionEncounte [address] r for suprvsn of Gita Phillips M, 1522, normal , Center [address], [place], [id number] weeks 120, [place], [id number], gestation of [place], [place], [id number]. tel:[phone] tel: , [place]. 7134249 tel: [phone] [facility] [place] Previous Low Mar-0 Lexus Referring In Womens Transverse 5-201 Wendy. Provider: Albertina BROWNE, C-SectionEncounte [address] PO Box r for suprvsn of [facility] M, 1522, normal , Center [address], [place], [id number] weeks 120, [place], [id number], gestation of [place], [place], [place], [id number]. tel: tel: , [place]. [id number] tel: [phone] Matt Seth Supervision of Lexus Referring In Womens Ultrasound other high risk 5-201 Wendy. Provider: Health PA, pregnancies, 8 [address] second Medical [place] M, 1522, trimesterPrevious Center [address] Transverse [place], C-[id number] weeks 120, [place], [id number], gestation of [place], [place], [place], [id number]. tel: tel: , [place]. 0334246 tel: [phone] Matt Seth Supervision of Lexus Referring In Womens other high risk 9-201 Wendy. Provider: Health PA, pregnancies, 8 [address] first Medical [place] M, 1522, trimesterPrevious Center [address] Transverse [place], C-Ifpebal20 weeks 120, [place], [id number], gestation of [place], [place], [place], [id number]. tel: tel: , [place]. 1265732 tel: [phone] Matt Seth Supervision of Lexus Referring In Womens other high risk 3-201 Wendy. Provider: Health PA, pregnancies, 8 [address] first Medical [place] M, 1522, trimesterPrevious Center [address] Transverse [place], C-SectionEncntr 120, [place], [id number], screen for [place], [place], [place] infections w sexl [place], [id number]. tel: mode of tel: transmissEncounte , [place]. [id number] r for screening tel: for oth [phone] infec/parastc diseasesEncounter for suprvsn of normal , first trimesterEncounte r for screening of mother9 weeks gestation of [facility] [place] [facility] Lexus Referring In Womens amenorrhea 5-201 Wendy. Provider: Albertina BROWNE, [address] [facility] M, 1522, Center [address], [place], [place], 120, [place], [id number], [place], [place], [place], [id number]. tel: [phone] tel: , [place]. 8225451 tel: [phone] Matt [facility] Feb- Lexus Referring In Womens infertility 5- Wnedy. Provider: Albertina BROWNE, associated with [address] anovulation [facility], 1522, Center [address], [place], [place], 120, [place], [id number], [place], [place], [place], [id number]. tel: [phone] tel: , [place]. 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 Provider: Albertina BROWNE, (routine) w/o abn [address] PO Box findings [facility], 1522, Center [address], [place], [place], 120, [place], [id number], [place], [place], [id number]. tel:[phone] tel: , [place]. 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 Provider: Albertina BROWNE, (routine) w/o abn 6 [address] PO Box findings [facility], 1522, Center [address], [place], [place], 120, [place], [id number], [place], [place], [place], [id number]. tel: [phone] tel: , [place]. [id number] tel: [phone] Associates [facility] Encounter for oth Alan Referring In [facility] Ultrasound genetic testing Diego. Provider: Albertina BROWNE, of female for pro 5 [address] mgmtEncounter for Luzmaria Phillips M, 1522, ot general cnsl [place], [address] [place], and advice on [place], [place], [place], procreationPerson [id number] [place], [id number], al history of ot , [place]. [place], diseases of the tel: [phone]. tel: female genital [phone] tel: tract [phone] [facility] [place]us Referring In Women Wendy. Provider: Albertina BROWNE, 3 700 Wendy PO Box Medical [place] L, 1522, Center [address], [facility], 120, [place] [id number], [place] [facility] 120, [place], tel: [phone] [place], , . [id number]. tel: tel: [phone] Family History Family Member Diagnosis Age At [...] type Covered constitution party ID Authorization(s) GAYLE SHAH [id number] Social History Type Description Quantity Date Captured [...]
--- OUTSIDE RECORDS SUMMARY | 2018-03-03 14:56 | External Medical Summary | Continuity of Care Document ---
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 tel: [phone] tel: [phone] , [place]. 2804903 tel: [phone] Matt Seth Previous Low Apr-3 Lexus Referring In Womens Transverse 0-201 Wendy. Provider: Albertina BROWNE, C-SectionDizzines [address] s and Medical Phillips M, 1522, giddinessEncounte Center [address] for suprvsn of [place], normal , 120, [place], [id number], second [place], [place] [id number] weeks [place], [id number]. tel:+ gestation of [phone] tel: , [place]. 6674989 tel: [phone] [facility] [place] Dizziness and Apr-2 Lexus Referring In Womens weeks 5-201 Wendy. Provider: Health HOLLIE, gestation of [address] PO [address] Medical Phillips M, 1522, Center [address] [place], [place], 120, [place], [id number], [place], [place], [id number]. tel:[phone] tel: , US. 9901086 tel: [phone] [facility] [place] Apr-2 [place] In Womens 5-201 Wendy. Health HOLLIE, 8 700 PO Box Medical 15[address], Center Dr [address], Clint [place], 120, [id number], [place], [place], tel:[phone] , [place]. tel: [phone] [facility] [place] Previous Low Apr-0 Lexus Referring In Womens Transverse 2-201 Wendy. Provider: Albertina BROWNE, C-SectionEncounte [address] Box r for suprvsn of [facility] Phillips M, 1522, normal , Center [address], [place], [place], [id number] weeks 120, [place], [id number], gestation of [place], [place], [id number]. tel:[phone] tel: , [place]. 2131272 tel: [phone] [facility] [place] Previous Low Mar-0 Lexus Referring In Womens Transverse 5-201 Wendy. Provider: Albertina BROWNE, C-SectionEncounte [address] r for suprvsn of Medical Phillips M, 1522, normal , Center [address], [place], [place], [id number] weeks 120, [place], [id number], gestation of HOSSEIN [place], [place], [id number]. tel: tel: , [place]. 6654328 tel: [phone] Matt Seth Supervision of Oct-0 Lexus Referring In Womens Ultrasound other high risk 5-201 Wendy. Provider: Health PA, pregnancies, 8 [address] [facility] M, 1522, trimesterPrevious Center [address] Low Transverse [place], C-[id number] weeks 120, [place], [id number], gestation of HOSSEIN [place], [place], [id number]. tel: tel: , US. 3085336 tel: [phone] Matt Seth Supervision of Lexus Referring In Womens other high risk 9-201 Wendy. Provider: Health PA, pregnancies, 8 [address] Box [facility] M, 1522, trimesterPrevious Center [address] Transverse [place], C-[id number] weeks 120, [place], [id number], gestation of [place], [place], [id number]. tel: tel: , [place]. 2575378 tel: [phone] Matt Seth Supervision of Lexus Referring In Womens other high risk 3-201 Wendy. Provider: Health PA, pregnancies, 8 [address] Box [facility] M, 1522, trimesterPrevious Center [address] Transverse [place], C-SectionEncntr 120, [place], [id number], screen for [place], [place] infections w sexl [place], [id number]. tel: mode of [phone] tel: transmissEncounte , [place]. 6974384 r for screening tel: for oth [phone] infec/parastc diseasesEncounter for suprvsn of normal , first trimesterEncounte r for screening of mother9 weeks gestation of Associates [place] [facility] Lexus Referring In Womens amenorrhea 5-201 Wendy. Provider: Albertina BROWNE, [address] PO [address] [facility], 1522, Center [address], [place], [place], 120, [place], [id number], [place], [place], [id number]. tel:[phone] tel: , US. 3977245 tel: [phone] [facility] [place] Female Feb-0 Lexus Referring In Womens infertility 5-201 Wendy. Provider: Albertina BROWNE, associated with [address] Box anovulation [facility], 1522, Center [address], [place], [place], 120, [place], [id number], [place], [place], [id number]. tel:[phone] tel: , US. 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 Provider: Albertina BROWNE, (routine) w/o abn [address] PO Box findings [facility], 1522, Center [address], [place], [place], 120, [place], [id number], [place], [place], [place], [id number]. tel:[phone] tel: , [place]. 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 Provider: Albertina BROWNE, (routine) w/o abn 6 [address] PO Box findings [facility], 1522, Center [address], [place], [place], 120, [place], [id number], [place], [place], [id number]. tel:[phone] tel: , US. 4875376 tel: [phone] Associates [facility] Encounter for oth Alan Referring In [facility] Ultrasound genetic testing Diego. Provider: Albertina BROWNE, of female for pro 5 [address] mgmtEncounter for Alan [place] M, 1522, oth general cnsl [place], [address] [place], and advice on [place], [place], HOSSEIN, procreationPerson [id number] [place], [id number], al history of oth , [place]. [place], diseases of the tel: [id number]. tel: female genital [phone] tel: tract [phone] [facility] [place]us Referring In Women Wendy. Provider: Albertina BROWNE, [address] Wendy PO Box Medical [place] L, 1522, Center [facility] [address] Gild[address], [facility], 120, [place] [id number], [place] [facility] 120, [place], tel: [phone] [place], , [place]. [id number]. tel: tel: [phone] Family History Family Member Diagnosis Age At [...] Insurance type Covered green party ID Authorization(s) [facility] [place] [id number] Social History Type Description Quantity Date Captured [...]
--- OUTSIDE RECORDS SUMMARY | 2018-03-03 14:56 | External Medical Summary | Continuity of Care Document ---
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 Provider: [facility], pregnancies, 8 [address] [facility], 1522, trimesterPrevious Center [address], [place], C-Ebunsau07 weeks 120, [place], [id number], gestation of HOSSEIN [place], [place] HOSSEIN, [id number]. tel: [phone] tel: [phone] , . 5589230 tel: [phone] Matt Seth December- Lexus In Womens 1-201 Wendy. [facility], 8 700 [facility] 1522, [place] [address] [place], 120, [id number], [place], [place], tel:[phone] , [place]. tel: [phone] Associates [place] Previous Low Apr-3 Lexus Referring In Womens Transverse 0-201 Wendy. Provider: Albertina BROWNE, C-SectionDizzines 8 [address] s and Medical Phillips M, 1522, [facility] [address] for suprvsn of [place], normal , 120, [place], [id number], [place], [place] [id number] weeks [place], [id number]. tel: gestation of [phone] tel: , US. 3168454 tel: [phone] Associates [place] Dizziness and Apr-2 Lexus Referring In Womens [id number] weeks 5-201 Wendy. Provider: Albertina BROWNE, gestation of [address] PO Box Medical [facility], 1522, Center [address] [place], [place], 120, [place], [id number], [place], [place], [id number]. tel: tel: , [place]. 7214598 tel: [phone] Associates [place] Previous Low Apr-0 Lexus Referring In Womens Transverse 2-201 Wendy. Provider: Albertina BROWNE, C-SectionEncounte [address] r [facility] , 1522, normal , Center [address], [place], [id number] weeks 120, [place], [id number], gestation [place], [place], [id number]. tel: tel: , US. 7246724 tel: [phone] Associates [place] Previous Low Mar-0 Lexus Referring In Womens Transverse 5-201 Wendy. Provider: Albertina BROWNE, C-SectionEncounte [address] r for suprvsn of [facility], 1522, normal , Center [address], [place], [place], [id number] weeks 120, [place], [id number], gestation of HOSSEIN [place], [place], [id number]. tel: tel: , [place]. 8877013 tel: [phone] Matt Seth Supervision of Oct-0 Lexus Referring In Womens Ultrasound other high risk 5-201 Wendy. Provider: Health PA, pregnancies, 8 [address] [facility] M, 1522, trimesterPrevious Center [address] Low Transverse [place], C-Fwhcbcp57 weeks 120, [place], [id number], gestation of HOSSEIN [place], [place], [id number]. tel: tel: , US. 7283771 tel: [phone] Matt Seth Supervision of Lexus Referring In Womens other high risk 9-201 Wendy. Provider: Health PA, pregnancies, 8 [address] Box [facility] M, 1522, trimesterPrevious Center [address] Transverse [place], C-Lawkcfx17 weeks 120, [place], [id number], gestation of [place], [place], [id number]. tel: tel: , US. 8916912 tel: [phone] Matt Seth Supervision of Lexus Referring In Womens other high risk 3-201 Wendy. Provider: Health PA, pregnancies, 8 [address] Box [facility] M, 1522, trimesterPrevious Center [address] Transverse [place], C-SectionEncntr 120, [place], [id number], screen for [place], [place] infections w sexl [place], [id number]. tel: mode of [phone] tel: transmissEncounte , US. 2786539 r for screening tel: for oth [phone] infec/parastc diseasesEncounter for suprvsn of normal , first trimesterEncounte r for screening of mother9 weeks gestation of Associates [place] [facility] Lexus Referring In Womens amenorrhea 5-201 Wendy. Provider: Albertina BROWNE, [address] PO [address] [facility], 1522, Center [address], [place], [place], 120, [place], [id number], [place], [place], [id number]. tel:[phone] tel: , US. 1902652 tel: [phone] Associates [place] Female Feb-0 Lexus Referring In Womens infertility 5-201 Wendy. Provider: Albertina BROWNE, associated with [address] anovulation [facility], 1522, Center [address], [place], [place], 120, [place], [id number], [place], [place], [id number]. tel:[phone] tel: , US. 8706243 tel: [phone] Matt Andrea for obstetrician/gynecologist Feb-2 Lexus Referring In Womens exam (general) 2-201 Wendy. Provider: Albertina BROWNE, (routine) w/o abn [address] PO Box findings [facility], 1522, Center [address], [place], [place], 120, [place], [id number], [place], [place], [id number]. tel:[phone] tel: , [place]. 9618198 tel: [phone] Matt Seth Encntr for obstetrician/gynecologist Feb-0 Lexus Referring In Womens exam (general) 4-201 Wendy. Provider: Albertina BROWNE, (routine) w/o abn 6 [address] Box findings [facility], 1522, Center [address], [place], [place], 120, [place], [id number], [place], [place], [id number]. tel:[phone] tel: , US. 2144633 tel: [phone] Associates [facility] East Encounter for oth Alan Referring In [facility] Ultrasound genetic testing Diego. Provider: Albertina BROWNE, of female for pro 5 [address] mgmtEncounter for Alan [place]utta M, 1522, oth general cnsl [place], [address] [place], and advice on [place], [place], HOSSEIN, procreationPerson [id number] [place], [id number], al history of oth , [place]. [place], diseases of the tel: [phone]. tel: female genital [phone] tel: tract [phone] Associates [place] Referring In Women Wendy. Provider: Albertina BROWNE, 3 700 Wendy PO Box Medical Lex[place] L, 1522, Center [facility] Dr [address], [facility], 120, [place] [id number], [place] [facility] 120, [place], tel: [phone] [place], , [place]. [id number]. tel: tel: [phone] Family History Family Member Diagnosis Age At [...] Unknown Payers Payer name Insurance type Covered alliance party ID Authorization(s) [facility] [place] [id number] Social History Type Description Quantity Date Captured [...]
--- OUTSIDE RECORDS SUMMARY | 2018-03-03 14:56 | External Medical Summary | Continuity of Care Document ---
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 Provider: Albertina BROWNE C-SectionEncounte [address] r for suprvsn of [facility], 1522, normal , Center [address], [place], [id number] weeks 120, [place], [id number], gestation of [place], [place], [place], [id number]. tel: [phone] tel: , . [id number] tel: [phone] Matt [place] Previous Low Oct- Lexus Referring In Womens Transverse 5-201 Wendy. Provider: Albertina BROWNE C-SectionEncounte 8 [address] PO Box r for suprvsn of [facility], 1522, normal , Center [address], [place], [place], weeks 120, [place], [id number], gestation of [place], [place], [place], [id number]. tel: [phone] tel: , . [id number] tel: [phone] Matt [place] Supervision of Lexus Referring In Womens Ultrasound other high risk 5-201 Wendy. Provider: Health PA, pregnancies, 8 [address] PO [address] second Medical [place], 1522, trimesterPrevious Center [address] Low Transverse [place], [id number] weeks 120, [place], [id number], gestation of [place], [place], [place], [id number]. tel:[phone] tel: , [place]. [id number] tel: [phone] Matt [place] Supervision of Lexus Referring In Womens other high risk 9-201 Wendy. Provider: Health PA, pregnancies, 8 [address] PO Box first Medical [place], 1522, trimesterPrevious Center [address] Low Transverse [place], [id number] weeks 120, [place], [id number], gestation of [place], [place], [place], [id number]. tel: tel: , [place]. [id number] tel: [phone] Matt [place] Supervision of Lexus Referring In Womens other high risk 3-201 Wendy. Provider: Health PA, pregnancies, 8 [address] first Medical [place], 1522, trimesterPrevious Center [address] Low Transverse [place], C-SectionEncntr 120, [place], [id number], screen for [place], [place], [place] infections w sexl [place], [id number]. tel: mode of [phone] tel: transmissEncounte , [place]. [id number] r for screening tel: for [facility] [phone] infec/parastc diseasesEncounter for suprvsn of normal , first trimesterEncounte r for screening of mother9 weeks gestation of Matt [place] Secondary Lexus Referring In Womens amenorrhea 5-201 Wendy. Provider: Health PA, [address] [facility] [place] M, 1522, Center [address] [place], [place], 120, [place], [id number], [place], [place], [place], [id number]. tel:[phone] tel: , [place]. [id number] tel: [phone] [facility] [place] Female Feb-0 Lexus Referring In Womens infertility 5-201 Wendy. Provider: Albertina BROWNE, associated with [address] anovulation Gita Loya, 1522, Center [address], [place], [place], 120, [place], [id number], [place], [place], [place], [id number]. tel:[phone] tel: , [place]. 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 Provider: Albertina BROWNE, (routine) w/o abn [address] findings Gita Loya, 1522, Center [address], [place], [place], 120, [place], [id number], [place], [place], [place], [id number]. tel:[phone] tel: , [place]. 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 Provider: Albertina BROWNE, (routine) w/o abn 6 [address] PO Box findings Gita Loya, 1522, Center [address], [place], [place], 120, [place], [id number], [place], [place], [place], [id number]. tel:[phone] tel: , [place]. [id number] tel: [phone] [facility] Encounter for ot Phillips Referring In Womens Ultrasound genetic testing 2- Diego. Provider: Albertina BROWNE, of female for pro 5 [address] Box mgmtEncounter for Alan [place], 1522, ot general cnsl [place], [address] [place], and advice on [place], procreationPerson [id number] [place], [id number], al history of [place] , [place]. [place], diseases of the tel: [phone]. tel: female genital [phone] tel: tract [phone] [facility] [place] Referring In Womens 2-201 Wendy. Provider: [facility] [place] L, 1522, Center [address], [facility], 120, [place] [id number], [place], [facility] 120, [place], tel: [phone] [place], , . [id number]. tel: tel: [phone] Family History Family Member Diagnosis Age At [...] name Insurance type Covered libertarian ID Authorization(s) [facility] [id number] Social History Type Description Quantity Date Captured Alcohol Use Details No Caffeine Use Details Unknown Tobacco Use Status Unknown Smoking Status Never smoker Vital Signs Date / Height Weight BMI Pulse Blood Temperature Respiratory Body Head BMI Time: Rate Pressure Rate Surface Circumference percentile Area 30.8 2018 4 4:07 kg/m PM eter (2) 184.30 31.6 131/81 -2018 lbs 3 mm[Hg] 4:30 kg/m PM eter (2) Chief Complaint And [...]
--- OUTSIDE RECORDS SUMMARY | 2018-03-03 14:56 | External Medical Summary | Continuity of Care Document ---
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 Cult, bactr, babita colonycnt, urine Infct Antigen, HIV-1/2 Antigen/Antibodies 4th Gen Obstetric profile Venpnctr fngr/heel/ear stick routne Cult, bactr, babita colonycnt, urine Infct antign, chlamydia trac, ampl Neisseria Gonorrhoeae, Amplification Results Test Name Date and Time Measure Units Reference Range Abnormal Flag Comments Panel Description: OBSTETRIC PANEL WHITE BLOOD CELL 7.7 Thousand/uL 3.8-10.8 N COUNT 14:06:00 RED BLOOD CELL 4.38 Million/uL 3.80-5.10 N COUNT 14:06:00 HEMOGLOBIN 13.9 g/dL 11.7-15.5 N 14:06:00 HEMATOCRIT 40.5 % 35.0-45.0 N 14:06:00 MCV 92.5 fL 80.0-100.0 N 14:06:00 MCH 31.7 pg 27.0-33.0 N 14:06:00 MCHC 34.3 g/dL 32.0-36.0 N 14:06:00 RDW 12.1 % 11.0-15.0 N 14:06:00 PLATELET COUNT 287 Thousand/uL 140-400 N 14:06:00 MPV 10.7 fL 7.5-12.5 N 14:06:00 ABSOLUTE 5344 cells/uL 9322-8730 N NEUTROPHILS 14:06:00 ABSOLUTE 1840 cells/uL 850-3900 N LYMPHOCYTES 14:06:00 ABSOLUTE 470 cells/uL 200-950 N MONOCYTES 14:06:00 ABSOLUTE 23 cells/uL 15-500 N EOSINOPHILS 14:06:00 ABSOLUTE 23 cells/uL 0-200 N BASOPHILS 14:06:00 NEUTROPHILS 69.4 % N 14:06:00 LYMPHOCYTES 23.9 % N 14:06:00 MONOCYTES 6.1 % N 14:06:00 EOSINOPHILS 0.3 % N 14:06:00 BASOPHILS 0.3 % N 14:06:00 ANTIBODY SCREEN, NO ANTIBODIES N RBC W/REFL ID, 14:06:00 DETECTED Reference range TITER AND AG No antibodies detected This assay is a screening test for the detection of red blood cell antibodies. The test is not to be used for pretransfusion screening or for the medical management of an alloimmunized . ABO GROUP O 14:06:00 RH TYPE RH(D) 14:06:00 POSITIVE RPR (DX) W/REFL NON-REACTIVE NON-REACTIV N TITER AND 14:06:00 E CONFIRMATORY TESTING HEPATITIS B NON-REACTIVE NON-REACTIV N SURFACE ANTIGEN 14:06:00 E RUBELLA ANTIBODY 1.75 index N Index (IGG) 14:06:00 Interpretation ----- <0.90 Not consistent with Immunity 0.90-0.99 Equivocal > or=1.00 Consistent with Immunity The presence of rubella IgG antibody suggests immunization or past or current infection withrubella virus.Test performed at [facility] [id number] [place] [address]Nmfjkvi r: TAISHA MAXWELL DO,MPH Panel Description: HIV 1/2 ANTIGEN/ANTIBODY,FOURTH GENERATION W/RFL HIV NON-REACTIVE NON-REACTIVE N HIV-1 antigen and HIV-1/HIV- 2 antibodies were AG/AB, 14:06:00 notdetected. There is no laboratory evidence of 4TH GEN HIVinfection. PLEASE NOTE: This information has been disclosed toyou from records whose confidentiality may beprotected by state law. If your state requires suchprotection, then the state law prohibits you frommaking any further disclosure of the informationwithout the specific written consent of the personto whom it pertains, or as otherwise permitted by law.A general authorization for the release of medical orother information is NOT sufficient for this purpose. For additional information please refer tohttp://education.myJambi/faq/MIY507(This link is being provided for informational/educational purposes only.) The performance of this assay has not been clinicallyvalidated in patients less than 2 years old. REPORT COMMENT:FASTING:NOTest performed at [facility] [address] [address]Ifxmewld: TAISHA MAXWELL DO,MPH Panel Description: Bacteria identified in Urine by Culture CULTURE, URINE, SEE NOTE CULTURE, URINE, ROUTINE MICRO ROUTINE 14:07:00 NUMBER: [id number] TEST STATUS: FINAL SPECIMEN SOURCE: URINE SPECIMEN QUALITY: ADEQUATE RESULT: No GrowthREPORT COMMENT:RFASTING:UNKNOWNTest performed at [facility] [address] [address]Rhlreexk: TAISHA MAXWELL DO,MPH Panel Description: CHLAMYDIA/N. GONORRHOEAE RNA, TMA CHLAMYDIA NOT DETECTED NOT DETECTED N TRACHOMATIS RNA, 14:05:00 TMA NEISSERIA NOT DETECTED NOT DETECTED N GONORRHOEAE RNA, 14:05:00 TMA [id number] SEE NOTE This test was 14:05:00 performed using the APTIMA COMBO2 Assay([employer] The analytical performance characteristics of this assay, when used to test SurePath specimens havebeen determined by Ritani. REPORT COMMENT:FASTING:UNKNO WNTest performed at [facility] [address] [address]Cotjbxiy: TAISHA MAXWELL DO,MPH Advance Directives Directive Yes / No Effective Date File Name Unknown Encounters Encounter Practice Location Reason(s) Diagnoses Date Provider Care Team Description For Visit Members [facility] [place] Supervision of Lexus Referring In Womens other high risk 3-201 Wendy. Provider: Health PA, pregnancies, [address] [facility] [place] M, 1522, trimesterPrevious Center [address] [place], Low Transverse , HOSSEIN [place], C-SectionEncntr 120, [place], [id number], screen for HOSSEIN [place], [place] infections w sexl [place], [id number]. tel: mode of [phone] [facility] . [id number] r for screening tel: for oth [phone] infec/parastc diseasesEncounter for suprvsn of normal , first trimesterEncounte r for screening of mother9 weeks gestation of [facility] [place] [facility] Lexus Referring In Womens amenorrhea 5-201 Wendy. Provider: Albertina BROWNE, [address] PO Box [facility], 1522, Center [address], [place], 120, [place], [id number], [place], [place], [id number]. tel:[phone] tel: , . [id number] tel: [phone] Matt [place] Female Feb- Lexus Referring In Womens infertility 5- Wendy. Provider: Albertina BROWNE, associated with [address] anovulation Medical [facility], 1522, Center [address], [place], 120, [place], [id number], [place], [place], [id number]. tel:[phone] tel: , [place]. 2854128 tel: [phone] Matt [place] Feb-0 Lexus In Womens 3-201 Wendy. Albertina BROWNE, 7 700 [address] Box Medical [address], [facility], 120, [id number], [place], [place], tel: [phone] , [place]. 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 Provider: Albertina BROWNE, (routine) w/o abn [address] PO Box findings Medical [place] M, 1522, Center [address], [place], 120, [place], [id number], [place], [place], [id number]. tel: [phone] tel: , [place]. 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 Provider: Albertina BROWNE, (routine) w/o abn 6 [address] PO Box [facility] Medical Alan M, 1522, Center [address], [facility] [place], [facility], [place], [id number], [place], [place], [facility], [id number]. tel: [phone] tel: , [place]. 3078154 tel: [phone] [facility] Encounter for oth Phillips Referring In Womens Ultrasound genetic testing [place]. Provider: Albertina BROWNE, of female for pro 5 [address] mgmtEncounter for Alan [place] M, 1522, oth general cnsl [place], [address] [place], and advice on [place], [place], [place], procreationPerson [id number] [place], [id number], al history of oth , [place]. [place], [place] diseases of the tel: [phone]. tel: female genital [phone] tel: tract [phone] [facility] [place] Referring In Womens [place]. Provider: Albertina BROWNE, 3 700 [address] PO Box Medical Lexus L, 1522, Center [address], [facility], 120, [place] [id number], [place] [facility] 120, [place], tel: [phone] [place], , [place]. [id number]. tel: tel: [phone] Family History Family Member Diagnosis Age At [...] Insurance type Covered green party ID Authorization(s) GAYLE SHAH [id number] Social History Type Description Quantity Date Captured Alcohol Use Details No Caffeine Use Details Unknown Tobacco Use Status Never smoked tobacco Smoking Status Never smoker Non-Smoking Tobacco Use : No Details Available : No Details Available Details Vital Signs Date / Height Weight BMI Pulse Blood Temperature Respiratory Body Head BMI Time: Rate Pressure Rate Surface Circumference percentile Area 178.50 30.6 129/2018 lbs 4 mm[Hg] 1:19 kg/m PM eter (2) Chief Complaint And [...]
--- OUTSIDE RECORDS SUMMARY | 2018-03-03 14:56 | External Medical Summary | Continuity of Care Document ---
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1 Postmenopausal 23.0-116.3 Test performed at [facility] [address] [address]Blvjjwbc: TAISHA MAXWELL DO,MPH Panel Description: Lutropin [Units/volume] in Serum or Plasma LH 09:35:00 6.0 mIU/mL N Reference RangeFollicular Phase 1.9-12.5Mid-Cycle Peak 8.7-76.3Luteal Phase 0.5-16.9Postmenopausal 10.0-54.7Test performed at [facility] [address] [address]Vmvjqwhp: TAISHA MAXWELL DO,MPH Panel Description: Prolactin [Mass/volume] in Serum or Plasma PROLACTIN 09:35:00 9.7 ng/mL N Reference Range Females Non- 3.0-30.0 10.0-209.0 Postmenopausal 2.0-20.0 Test performed at [facility] [address] [address]Jknnanrg: TAISHA MAXWELL DO,MPH Panel Description: Estradiol (E2) [Mass/volume] in Serum or Plasma ESTRADIOL 09:35:00 36 pg/mL N Reference Range Follicular Phase: 19-144 Mid-Cycle: 64-357 Luteal Phase: 56-214 Postmenopausal: < or=31 Reference range established on post-pubertal patientpopulation. No pre-pubertal reference rangeestablished using this assay. For any patients forwhom low Estradiol levels are anticipated (e.g. males,pre-pubertal children and hypogonadal/post-menopausal females), the [facility]Red [facility] Hospital and ClinicEstradiol, Ultrasensitive, LCMSMS assay is recommended(order code 68653). Please note: patients being treated with the drug fulvestrant (Faslodex(R)) have demonstrated significant interference in immunoassay methods for estradiol measurement. The cross reactivity could lead to falsely elevated estradiol test results leading to an inappropriate clinical assessment of estrogen status.YaKlass order code 49690-Dqntucstw, Ultrasensitive LC/MS/MS demonstrates negligible cross reactivity with fulvestrant.Test performed at [facility] [address]Vpwhikpo: TAISHA MAXWELL DO,MPH Panel Description: Mullerian inhibiting substance [Mass/volume] in Serum or Plasma ANTI 2.77 ng/mL REFERENCE RANGES for AMH/MIS: MULLERIAN 09:35:00 Age Expected range HORMONE (ng/mL) ASSESSR(TM) Female: <14 yrs 0.49-3.15 14-19 yrs 1.28-16.37 20-29 yrs 0.76-11.34 30-39 yrs <9.24 40-49 yrs <4.50 > 49 yrs <0.45 Male: <1 yr 37.20-345.67 1-6 yrs 59.54-320.65 7-11 yrs 40.99-203.67 12-17 yrs <128.29 > 17 yrs 1.15-15.23 For more information on this test, go to: http://education.Shirley Mae's/faq/FA V263JINNIY COMMENT:FASTING:NOTest performed at [facility] [id number] [place] [address]Zsrjaosl: KACIE MILLER MD,FCAP Advance Directives Directive Yes / No Effective Date File Name Unknown Encounters Encounter Practice Location Reason(s) Diagnoses Date Provider Care Team Description For Visit Members Office/outpa [facility] [place] fertility Female Feb- Lexus Referring tient In Womens concerns infertility 5-201 [place]. [facility]: [facility] [employer] PA, (chief associated with [address] mod [address] complaint) anovulation Medical Alan Loya, 1522, Center [address], [facility] [place], [place], [facility], [address], [id number], [place], [facility], [id number]. tel:[phone] tel:+ [phone] , [place]. [id number] tel: [phone] [facility] [place] Edi-0 [place] In Womens 3-201 Wendy. Health PA, 7 700 [address] Medical [address] [place] [address], [facility], 120, [id number], [place], [place], tel:[phone] , [place]. 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 Provider: Albertina BROWNE, (routine) w/o abn [address] Box findings Medical Alan M, 1522, Center [address], [facility] [place], [place], 120, [place], [id number], [place], [place], [place], [id number]. tel:[phone] tel: , [place]. [id number] tel: [phone] [facility] [place] Encntr for hospital education coordinator Fe-0 Lexus Referring In Womens exam (general) Wendy. Provider: Albertina BROWNE, (routine) w/o abn 6 [address] findings Medical Alan M, 1522, Center [address], [facility] [place], [place], 120, [place], [id number], [place], [place], [place], [id number]. tel:[phone] tel: , [place]. 4343575 tel: [phone] [facility] Encounter for ot Phillips Referring In Womens Ultrasound genetic testing [place]. Provider: Albertina BROWNE, of female for pro 5 [address] mgmtEncounter for [place] M, 1522, oth general cnsl [place], [address], and advice on [place], [place], HOSSEIN, procreationPerson [id number] [address], , al history of oth , [place]. [place], [place] diseases of the tel:[phone]. tel: female genital [phone] tel: tract [phone] [facility] [place] December- Lexus Referring In Womens - Wendy. Provider: Albertina BROWNE, 3 700 Wendy PO Box Medical Lexus L, 1522, Center [address], [facility], 120, [place] [id number], [facility] 120, HOSSEIN, [place], tel:[phone] [place], , . [id number]. tel: tel: [phone] [facility] [place] May-0 Balbir In Womens 9-201 Analia. [facility], 3 700 [facility] [address], [address], [facility], 120, [id number], [place], HOSSEIN, tel: [phone] , . tel: [phone] Family History Family Member Diagnosis Age At [...] Insurance type Covered alliance party ID Authorization(s) [facility] [id number] Social History Type Description Quantity Date Captured Alcohol Use Details Unknown Caffeine Use Details Unknown Tobacco Use Status Unknown Smoking Status Never smoker Vital Signs Date / Height Weight BMI Pulse Blood Temperature Respiratory Body Head BMI Time: Rate Pressure Rate Surface Circumference percentile Area 180.10 83 144/ lbs /min mm[Hg] 9:04 AM Chief Complaint And Reason For Visit Most recent encounter only, dated '02/11/2017 09:00'. fertility concerns (chief complaint). Description: She's been checking OPKs x 3 months, all negative. Reports monthly periods, lasting 4-5 days. LMP 01/13/17. He denies any changes in health status. Same partner. Reason For Referral Reason For Referral Unknown Plan Of Care Date Type Action Status Goal Lifestyle education regarding diet completed Goal Lifestyle education regarding diet completed Date Type Problem Goal Intervention Status Start Date Unknown. History Of Present Illness Encounter Date Complaint History Of Present Illness fertility concerns She's been checking OPKs x 3 months, all negative. Reports monthly periods, lasting 4-5 days. LMP 01/13/17. He denies any changes in health status. Same partner. Functional Status Encounter Date Functional Assessment Cognitive [...]
--- OUTSIDE RECORDS SUMMARY | 2018-03-03 14:57 | External Medical Summary | Continuity of Care Document ---
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 [employer] [place], 7 700 [address], [facility] [place], 120, [id number], [place], [place], tel:[phone] , [place]. tel: [phone] [facility] Female Edi-0 Lexus Referring In Womens infertility 5-201 Wendy. Provider: Albertina BROWNE, associated with 7 700 [place] PO Box anovulation Medical [facility], 1522, [address], [place], [place], 120, [place], [id number], [place], [place], [place], [id number]. tel:[phone] tel: , [place]. [id number] tel: [phone] [facility] Edi-0 [place] In Womens 3-201 Wendy. Albertina BROWNE, 7 700 [address] Medical [address], [address], [facility], 120, [id number], [place], [place], tel:[phone] , [place]. 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 Provider: Albertina BROWNE, (routine) w/o abn 7 700 [place] PO Box findings Medical [facility], 1522, Center [address], [place], [place], 120, [place], [id number], [place], [place], [place], [id number]. tel: tel: , [place]. 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 Provider: Albertina BROWNE, (routine) w/o abn 6 700 [place] PO Box findings [facility], 1522, Center [address], [place], [place], 120, [place], [id number], [place], [place], [place], [id number]. tel:[phone] tel: , [place]. [id number] tel:[phone] [facility] Encounter for oth Alan Referring In Womens Ultrasound genetic testing 2- Diego. Provider: Albertina BROWNE, of female for pro 5 [address] [place] [address] Box mgmtEncounter for Alan Dutta M, 1522, oth general cnsl [place], [address] [place], and advice on [place], [place], HOSSEIN, procreationPerson [id number] [place], , al history of oth , [place]. [place], [place] diseases of the tel: [phone]. tel: female genital [phone] tel:[phone] [facility] December- Lexus Referring In Womens 2- Wendy. Provider: Albertina BROWNE, 3 700 Wendy PO Box Medical Lex[place] L, 1522, Center [facility] [address], [facility], 120, [place] [id number], [facility] 120, [place], tel: [phone] [place], [phone] , . [id number]. tel: tel: [phone] [facility] December-0 [place] In Womens 9-201 Analia. Albertina BROWNE, 3 700 [address] Medical [address], [address], [facility] [place], 120, [id number], [place], [place], tel: [phone] , . tel: [phone] Family History Family Member Diagnosis Age At [...] name Insurance type Covered democrat ID Authorization(s) GAYLE SHAH [id number] Social History Type Description Quantity Date Captured [...]
--- OUTSIDE RECORDS SUMMARY | 2018-03-03 14:57 | External Medical Summary | Continuity of Care Document ---
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 tel:[phone] tel: , [place]. 9385680 tel: [phone] Matt [place] Previous Low Antonio-2 Lexus Referring In Womens Ultrasound Transverse 5-201 Wendy. Provider: Albertina BROWNE, [id number] weeks 8 700 [place] PO Box gestation of [facility], 1522, Center [address] [place], [place], 120, [place], [id number], [place], [place], [place], [id number]. tel: tel: , [place]. [id number] tel: [phone] Matt [place] Previous Low Antonio-1 Lexus Referring In Womens Transverse 1-201 Wendy. Provider: Albertina BROWNE, C-SectionEncounte 8 700 [place] PO Box r for suprvsn of [facility], 1522, normal , Center [address] [place], third [email or web address] [place], weeks gestation 120, [place], [id number], of [place], [place], [place], [id number]. tel: tel: , [place]. 5846360 tel: [phone] Matt [place] Previous Low May-3 Cornelius Referring In Womens Transverse 0-201 Cedrick. 700 Provider: Albertina BROWNE, C-SectionEncounte 8 Medical [place] PO Box r for suprvsn of Center [facility], 1522, normal , [place] [facility] E [place], third [id number] 120, HOSSEIN [place], weeks gestation Gildardo [place], [id number], of [place], [place] [id number]. tel: , [place]. tel: tel:[phone] Matt [place] Supervision of Lexus Referring In Womens other high risk 4-201 Wendy. Provider: Health PA, pregnancies, 8 700 [place] PO Box third Medical Phillips M, 1522, trimesterPrevious Center [address] [place], Nick Transverse [place], C-[id number] weeks 120, [place], [id number], gestation of [place], [place], [id number]. tel:[phone] tel:+ , [place]. [id number] tel: [phone] [facility] Previous Low Apr-3 Lexus Referring In Womens Transverse 0-201 Wendy. Provider: Albertina BROWNE, C-SectionDizzines 8 700 [place] PO Box s and Medical Phillips M, 1522, giddinessEncounte Center [address] [place], r for suprvsn of [place], normal , 120, [place], [id number], second [place], [place] [email or web address] weeks [place], [id number]. tel: gestation of [phone] tel: , [place]. [id number] tel: [phone] [facility] Dizziness and Apr-2 Lexus Referring In Womens [email or web address] weeks 5-201 Wendy. Provider: Albertina BROWNE, gestation of 8 700 [place] PO Box Medical Alan M, 1522, Center [address] [place], [place], 120, [place], [id number], [place], [place], [place], [id number]. tel:[phone] tel: , [place]. [id number] tel: [phone] [facility] Previous Low Apr-0 Lexus Referring In Womens Transverse 2-201 Wendy. Provider: Albertina BROWNE, C-SectionEncounte 8 700 [place] PO Box r for suprvsn of Medical Phillips M, 1522, normal , Center [address], [place], [place], [id number] weeks 120, [place], [id number], gestation of [place], [place], [id number]. tel:[phone] tel: , [place]. [id number] tel: [phone] [facility] Previous Low Mar-0 Lexus Referring In Womens Transverse 5-201 Wendy. Provider: Albertina BROWNE, C-SectionEncounte 8 700 [place] PO Box r for suprvsn of [facility], 1522, normal , Center [address], [place], [place], [id number] weeks 120, [place], [id number], gestation of [place], [place], [place], [id number]. tel:[phone] tel: , [place]. 0797696 tel: [phone] [facility] Supervision of Mar-0 Lexus Referring In Womens Ultrasound other high risk 5-201 Wendy. Provider: Health PA, pregnancies, 8 700 [place] PO Box second [facility], 1522, trimesterPrevious Center [address] Transverse [place], C-[id number] weeks 120, [place], [id number], gestation of [place], [place], [place], [id number]. tel:[phone] tel: , [place]. 8421273 tel: [phone] Matt [place] Supervision of Mauricio-2 Lexus Referring In Womens other high risk 9-201 Wendy. Provider: Health PA, pregnancies, 8 700 [place] PO Box first [facility], 1522, trimesterPrevious Center [address] Transverse [place], C-[id number] weeks 120, [place], [id number], gestation of [place], [place], [place], [id number]. tel:[phone] tel: , [place]. [id number] tel: [phone] Matt [place] Supervision of Mauricio-0 Lexus Referring In Womens other high risk 3-201 Wendy. Provider: Health PA, pregnancies, 8 700 [place] PO Box first [facility], 1522, trimesterPrevious Center [address], [place], C-SectionEncntr 120, [place], , screen for [place], [place], [place] infections w sexl [place], [id number]. tel: mode of [phone] tel: transmissEncounte , [place]. [phone] r for screening tel: for oth [phone] infec/parastc diseasesEncounter for suprvsn of normal , first trimesterEncounte r for screening of mother9 weeks gestation of [facility] Lexus Referring In Womens amenorrhea 5-201 Wendy. Provider: Albertina BROWNE, 7 700 [place] PO Box [facility] Phillips M, 1522, Center [address], [place], HOSSEIN, 120, [place], , [place], [place], [id number]. tel:[phone] tel: , [place]. [id number] tel: [phone] Matt [place] Female Edi-0 Lexus Referring In Womens infertility 5-201 Wendy. Provider: Albertina BROWNE, associated with 7 700 [place] PO Box anovulation Medical Phillips M, 1522, Center [address], [place], HOSSEIN, 120, [place], , [place], [place], [id number]. tel:[phone] tel: , [place]. 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 Provider: Albertina BROWNE, (routine) w/o abn 7 700 [place] PO Box findings Medical Phillips M, 1522, Center [address], [place], HOSSEIN, 120, [place], , [place], [place], [place], [id number]. tel:[phone] tel: , [place]. 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 Provider: Albertina BROWNE, (routine) w/o abn 6 700 [place] PO Box findings Medical Alan M, 1522, Center [address], [place], [place], [facility], [place], [id number], [place], [place], [facility], [id number]. tel: [phone] tel: , [place]. 5858590 tel: [phone] [facility] Encounter for oth Phillips Referring In Womens Ultrasound genetic testing Diego. Provider: Albertina BROWNE, of female for pro 5 [address] [place] PO Box mgmtEncounter for [place] p[place], 1522, ot general cnsl [place], [address] [place], and advice on [place], HOSSEIN, procreationPerson [id number] [place], , al history of oth , [place]. [place], [place] diseases of the tel: [phone]. tel: female genital [phone] tel: tract [phone] [facility] Lexus Referring In Womens - Wendy. Provider: Albertina BROWNE, 3 700 Wendy PO Box Medical Lexus L, 1522, Center [address], [facility], 120, [place] [id number], [place] [facility] 120, [place], tel: [phone] [facility] , . [id number]. tel: tel: [phone] Family History Family Member Diagnosis Age At [...] type Covered democrat ID Authorization(s) GAYLE SHAH [id number] Social History Type Description Quantity Date Captured [...] Appointment Becky Houston BOOKED Appointment Becky Houston [facility] BOOKED Appointment Becky Houston BOOKED Future Order: Lab Order Pap Smear With HPV Reflex If Ordered ASCUS ([id number]), Collected on: Future Order: Radiology Order Ultrasound OB Follow-up ([id number]) Ordered Date Type Problem Goal Intervention Status [...]
[2018-03-03] MEDS ORDERED: FAMOTIDINE PB 20 MG/50 ML BAG IV ONE (15:03)
[2018-03-03] MEDS ORDERED: CEFAZOLIN PREMIX (MC ONLY) 2 GM/50 ML BAG IV ONE (15:03)
[2018-03-03] MEDS ORDERED: NOZIN NASAL SWAB NAS ONE ×2 (15:03)
[2018-03-03] MEDS ORDERED: CITRIC ACID/SODIUM CITRATE 30ml PO ONE (15:03)
--- NOTE | 2018-03-03 15:20 | Anesthesia Preoperative Report ---
Anesthesia Epidural/Spinal Rec - Date and Time Date: 03/03/18 Preoperative Diagnosis: Previous C section Procedure: Plan: Spinal - Vital Signs /Para: P:1 - Medictaions & Allergies Inpatient Medications: Current Medications Cefazolin Sodium/Dextrose (Kefzol Premix ( Only)) 2 gm in 50 mls @ 100 mls/ hr IV PREOP ONE Stop: 03/03/18 15:32 Famotidine/Sodium Chloride (Pepcid Premix) 20 mg in 50 mls @ 100 mls/hr IV PREOP ONE Stop: 03/03/18 15:32 Allergies/Adverse Reactions: Allergies Allergy/AdvReac Type Severity Reaction Status Date / Time hydrocodone Allergy Severe Rash Verified 03/01/18 14:27 oxycodone Allergy Severe Rash Verified 03/01/18 14:27 - Home Medications Home Medications: Home Medications Medication Instructions Recorded Confirmed Type Aspirin [Children's Aspirin] 81 mg PO DAILY 03/01/18 03/01/18 History Gorin-3/Dha/Epa/Fish Oil [Fish Oil 1 each PO DAILY 03/01/18 03/01/18 History 1,000 mg Softgel] Vit Calc,Iron,Folic 1 each PO DAILY 03/01/18 03/01/18 History [ Vitamins] - Medical History Other History: Reports: Now - Surgical History Reproductive Surgery/Treatment: Reports: Section Anesthesia Reactions: None Hx Family Anesthesia Reaction: No History of Motion Sickness: No - Social History Smoking Status: Never smoker Second Hand Exposure: No Substance Use Type: does not use Alcohol Intake Frequency: does not drink Hx Chewing Tobacco Use: No - Physical Exam Respiratory Exam: lungs clear Cardiovascular Exam: regular rate and rhythm - Airway Assessment Mallampati Score: II TMD: 3 Fingerbreadths Neck Extension: good Overall Assessment: may be difficult mask vent, may be difficult intubation - ASA ASA Score: 2 - Discussion Discussion: Discussed risks/options/alternatives of anesthesia and questions answered. Patient consents. Nursing pain assessment noted. Anesthesia Discussion: spouse Attestation Statement: Prior to the delivery of any anesthetic medication, I examined the patient, developed the plan, obtained the patient's consent and discussed the risk and benefits of the procedure with the patient/guardian.
[2018-03-03 15:27] VITALS: BMI 31.9
[2018-03-03] MEDS: LR 1,000 ML IV SCH ×2 (15:54→16:47)
[2018-03-03] MEDS ORDERED: FentaNYL 100 MCG/2 ML INJECTION ONE (17:55)
[2018-03-03] MEDS ORDERED: MORPHINE SULFATE PF 5mg/10ml INJ (Duramorph) ONE (17:56)
[2018-03-03] MEDS ORDERED: BUPIVACAINE 0.75%/DEXTROSE 8.5% SPINAL 2 ML AMPULE IJ ONE (17:57)
[2018-03-03] MEDS ORDERED: SALINE FLUSH 10ml SYRINGE ONE (18:05)
[2018-03-03] MEDS ORDERED: PHENYLEPHRINE INJ 10 MG/ML VIAL IV ONE (18:05)
[2018-03-03] MEDS ORDERED: ONDANSETRON 4 MG/2 ML INJECTION ONE (18:08)
[2018-03-03] MEDS ORDERED: GLYCOPYRROLATE 0.4 MG/2 ML INJECTION ONE (18:09)
[2018-03-03] MEDS: OXYTOCIN BOLUS BAG 30 UNIT/500 ML ML IV SCH ×2 (18:20→19:30)
[2018-03-03] MEDS ORDERED: NALOXONE 2 MG/2 ML INJECTION PFS IVP PRN ×2 (19:08→22:51)
[2018-03-03] MEDS ORDERED: HYDROCORTISONE 2.5% CREAM 30gm RECTALLY PRN (20:13)
[2018-03-03] MEDS ORDERED: D5LR 1,000 ML IV SCH (20:13)
[2018-03-03] MEDS ORDERED: CALCIUM CARBONATE Chewable 500mg TABLET PO PRN (20:13)
[2018-03-03] MEDS ORDERED: OXYTOCIN DRIP 30 UNIT/500 ML ML IV SCH (20:13)
[2018-03-03] MEDS ORDERED: SIMETHICONE 80 MG CHEWABLE TABLET PO PRN (20:13)
[2018-03-03] MEDS ORDERED: DiphenhydrAMINE 25 MG CAPSULE PO PRN (20:13)
[2018-03-03] MEDS ORDERED: ACETAMINOPHEN 500 MG TABLET PO PRN (20:13)
[2018-03-03] MEDS: IBUPROFEN 800 MG TABLET PO PRN (20:44)
--- NOTE | 2018-03-03 20:49 | Operative Note ---
DATE OF SURGERY 03/03/2018 PREOPERATIVE DIAGNOSES Term . Previous x 1. Mild preeclampsia. POSTOPERATIVE DIAGNOSES Term . Previous x 1. Mild preeclampsia. PROCEDURE Repeat low transverse section. SURGEON Wendy Alberts MD ENGINEERING PROGRAM ANALYST Reji Camp, Ceo ANESTHESIA Spinal epidural by Tan Snider CRNA EBL 700 mL DESCRIPTION OF PROCEDURE Ms. Houston was brought to the OR and given regional analgesia to good effect. She was placed on the OR table in supine position with left lateral displacement. A Magallanes catheter was placed to dependent drain. The abdomen was prepped and draped in the usual sterile fashion. A Pfannenstiel skin incision was made through the patient's prior scar. This was carried down to fascia. Fascia was incised transversely. This was then tented up. Fascia was bluntly and sharply dissected free of rectus muscles. Rectus muscles were bluntly divided. The peritoneum was tented up and sharply entered, then extended vertically. The bladder blade was inserted. The vesicouterine fold of peritoneum was tented up and incised transversely, then a bladder flap bluntly created. The bladder blade was reinserted to protect the bladder. A low transverse uterine incision was made with a sharp knife. There was clear amniotic fluid. Baby was delivered in vertex presentation without difficulty. Baby was bulb suctioned on the abdomen and then further bulb suctioned after delivery in total. The cord was doubly clamped and cut and the baby was given to Dr. Ace and his team for care. This is a liveborn female with Apgars of 8/ 9/9. The placenta was then expressed intact. It had a normal configuration and a normal-appearing three-vessel cord. The uterus was exteriorized and the cavity swept clear of membranes. We then reapproximated the myometrial incision with a running locking 0-Monocryl. There was a small area on the right edge of the incision that required a [id number] suture overlying that for hemostasis. We inspected carefully. Hemostasis was under good control. Uterus, tubes and ovaries were noted to be normal. There was a small fibroid arising from the posterior corpus approximately 2 cm in size. The uterus was returned to the abdominal cavity. We reinspected our incision. Our myometrial incision was hemostatic. We then continued our closure. We used 2- 0 Vicryl to reapproximate the peritoneum, then 0-Vicryl to reapproximate the fascia. Skin edges were reapproximated with a subcuticular style 3-0 undyed Vicryl. The wound was dressed with a mesh drape with Dermabond. Total blood loss was approximately 700 mL. Counts were correct postoperatively x 2 and the urine remained clear and free-flowing. At the time of this dictation mother and baby are doing well. [facility]
[2018-03-03] MEDS: SIMETHICONE 80 MG CHEWABLE TABLET PO SCH (21:25)
[2018-03-03] MEDS ORDERED: ONDANSETRON 4 MG/2 ML INJECTION IVP PRN (22:51)
[2018-03-03] MEDS ORDERED: NALBUPHINE 10 MG/ML INJECTION IVP PRN (22:51)
[2018-03-03] MEDS ORDERED: DiphenhydrAMINE 50 MG/ML INJECTION IVP PRN (22:51)
[2018-03-03] MEDS ORDERED: METOCLOPRAMIDE 10mg/2ml INJECTION IVP PRN (22:51)
[2018-03-03] MEDS ORDERED: HYDROMORPHONE 2 MG TABLET PO PRN (23:51)
--- NOTE | 2018-03-04 08:40 | Anesthesia Postoperative Note ---
- Date and Time Date: 03/04/18 Time: 08:30 - Status Patient Participated in Evaluation: Patient Participated in Person Vital Signs: Temperature 98.7 F 03/04/18 06:47 Pulse Rate 78 03/04/18 06:47 Respiratory Rate 16 03/04/18 06:47 Blood Pressure 110/60 03/04/18 06:47 Pulse Oximetry 99 03/04/18 06:47 Respiratory Function: Airway Patent, Regular Respirations Cardiovascular Function: Regular Pulse Mental Status: Alert and Oriented Pain Intensity: 0 Hydration: Taking PO Fluids Nausea/Vomiting: None Complications During Recover: None Apparent - Follow-Up Instructions Instructions: Per Surgeon
--- NOTE | 2018-03-04 11:05 | OB/GYN Progress Note ---
OB-PP Progress Note - General PPD1 POD:: POD1 Maternal Group B Strep: Positive Maternal Rh: positive Maternal Rubella Status: Immune - Subjective Date: 03/04/18 Lochia: Minimal Pain: controlled Voiding: voiding Nausea or Vomiting Present: No - Objective Vital Signs: Last Vital Signs Temp 98.7 F 03/04/18 06:47 Pulse 78 03/04/18 06:47 Resp 16 03/04/18 06:47 BP 110/60 03/04/18 06:47 Pulse Ox 99 03/04/18 06:47 General: alert and oriented Abdomen: fundus firm, non-tender Incision: dry, dressed Extremities: non-tender Laboratory: Laboratory Results - last 24 hr 03/03/18 03/03/18 03/04/18 15:36 15:36 07:06 WBC 8.0 9.6 RBC 4.26 3.76 L Hgb 13.6 12.1 D Hct 38.7 34.7 L MCV 90.8 92.3 MCH 31.9 32.2 MCHC 35.1 34.9 RDW Std Deviation 41.5 41.3 Plt Count 170 146 MPV 12.0 11.9 Immature Gran % (Auto) 0.1 Neut % (Auto) 67.9 H Lymph % (Auto) 24.2 [place] % (Auto) 7.3 Eos % (Auto) 0.4 Baso % (Auto) 0.1 Neut # (Auto) 5.4 Lymph # (Auto) 1.9 [place] # (Auto) 0.6 Eos # (Auto) 0.0 Baso # (Auto) 0.0 Abs Immat Gran (auto) 0.01 Blood Type O Positive Antibody Screen Negative - Assessment Assessment: SP, Repeat C/S - Plan Plan: routine care Expected date of discharge: 03/05/18
[2018-03-04] MEDS: DOCUSATE CALCIUM 240 MG CAPSULE PO SCH (11:24)
[2018-03-04] MEDS: IBUPROFEN 800 MG TABLET PO PRN ×2 (11:25→22:50)
[2018-03-04] MEDS: SIMETHICONE 80 MG CHEWABLE TABLET PO SCH ×4 (11:25→22:50)
[2018-03-04] MEDS: TRAMADOL 50 MG TABLET PO SCH ×3 (16:55→22:48)
[2018-03-05 02:26] VITALS: RESP 16; O2SAT 98
[2018-03-05] MEDS: IBUPROFEN 800 MG TABLET PO PRN (07:08)
[2018-03-05 07:11] VITALS: BP 123/82; PULSE 74; TEMP 97.2
--- NOTE | 2018-03-05 08:12 | OB/GYN Progress Note ---
OB-PP Progress Note - General PPD2 Maternal Group B Strep: Positive Maternal Rh: positive Maternal Rubella Status: Immune - Subjective Date: 03/05/18 Lochia: Minimal Pain: controlled Voiding: voiding - Objective Vital Signs: Last Vital Signs Temp 97.2 F 03/05/18 07:00 Pulse 74 03/05/18 07:00 Resp 16 03/05/18 07:00 BP 123/82 03/05/18 07:00 Pulse Ox 98 03/04/18 23:00 General: alert and oriented Abdomen: fundus firm, non-tender Incision: clean, no erythema, dry Extremities: non-tender - Assessment Assessment: Repeat C/S - Plan Plan: routine care, discharge home, continue PNV
[2018-03-05] MEDS: TRAMADOL 50 MG TABLET PO SCH (09:49)
[2018-03-05] MEDS: DOCUSATE CALCIUM 240 MG CAPSULE PO SCH (09:57)
== END 2018-03-05 14:44 | disposition home or self-care (01) | DRG 766 ==
LOC: MC 03-03 14:47
PROVIDERS: ADMIT Obstetrics & Gynecology; ATTEND Obstetrics & Gynecology